=== PATIENT | female | born 1945 | race Caucasian/White ===

== ENCOUNTER 2016-06-30 14:56 | Emergency (ER) | payer MEDICARE, MEDICAID ==
--- NOTE | 2016-06-30 15:32 | ER Document Report ---
ED General - General Chief Complaint: Fall Stated Complaint: FALL/HEAD PAIN Mode of Arrival: Medic Information source: Patient Notes: 71-year-old female presents after aspirating on her food. Patient notes she tripped over a chair as she was trying to get off fell and dislodged the foreign body. Patient now only admits to headache and neck pain. Denies any numbness weakness or neurological deficits TRAVEL OUTSIDE OF THE [place] IN LAST 30 DAYS: No - HPI Onset: Just prior to arrival Onset/Duration: Sudden Quality of pain: Achy Severity: Mild Pain Level: 1 Associated symptoms: Headache Exacerbated by: Denies Relieved by: Denies Similar symptoms previously: No Recently seen / treated by doctor: No - Related Data Allergies/Adverse Reactions: ciprofloxacin [From Cipro] Allergy (Mild, Verified 06/30/16 15:44) rash ciprofloxacin HCl [From Cipro] Allergy (Mild, Verified 06/30/16 15:44) rash codeine [Codeine] Allergy (Mild, Verified 06/30/16 15:44) rash esomeprazole magnesium [From Nexium] Allergy (Mild, Verified 06/30/16 15:44) rash oxycodone HCl [From Percodan] Allergy (Mild, Verified 06/30/16 15:44) syomach upset oxycodone terephthalate [From Percodan] Allergy (Mild, Verified 06/30/16 15:44) syomach upset pentazocine lactate [From Talwin] Allergy (Mild, Verified 06/30/16 15:44) rash propoxyphene napsylate [From Darvocet-N 100] Allergy (Mild, Verified 06/30/16 15 :44) rash Sulfa (Sulfonamide Antibiotics) Allergy (Mild, Verified 06/30/16 15:44) rash Tetanus Vaccines and Toxoid [Tetanus] Allergy (Mild, Verified 06/30/16 15:44) arm swelled valsartan [From Diovan] Allergy (Verified 06/30/16 15:44) rash Penicillins Adverse Reaction (Mild, Verified 06/30/16 15:44) Hives propn apap Allergy (Mild, Uncoded 06/30/16 15:44) rash tolvan Allergy (Mild, Uncoded 06/30/16 15:44) rash Past Medical History - Social History Smoking Status: Never Smoker Cigarette use (# per day): No Chew tobacco use (# tins/day): No Smoking Education Provided: No Family History: Arthritis, CAD, Malignancy, Thyroid Disfunction - Past Medical History Cardiac Medical History: Reports: Hx Hypercholesterolemia, Hx Hypertension Pulmonary Medical History: Reports: Hx Asthma Neurological Medical History: Reports: Hx Migraine Endocrine Medical History: Reports: Hx Hypothyroidism GI Medical History: Reports: Hx Gastroesophageal Reflux Disease, Hx Hiatal Hernia, Hx Irritable Bowel Musculoskeltal Medical History: Reports Hx Arthritis Psychiatric Medical History: Reports: Hx Depression Past Surgical History: Reports: Hx Appendectomy, Hx Cholecystectomy, Hx Dilation and Curettage, Hx Hysterectomy, Hx Kidney (Renal Surgery) - removed 1981, Hx Pacemaker, Hx Tonsillectomy - Immunizations Immunizations up to date: No Hx Diphtheria, Pertussis, Tetanus Vaccination: No Hx Pneumococcal Vaccination: 01/23/12 Review of Systems - Review of Systems Notes: REVIEW OF SYSTEMS: CONSTITUTIONAL : Denies fever, chills, or sweats. Denies recent illness. EENT: Denies eye, ear, throat, or mouth pain or symptoms. Denies nasal or sinus congestion or discharge. Denies throat, tongue, or mouth swelling or difficulty swallowing. CARDIOVASCULAR: Denies chest pain. Denies palpitations or racing or irregular heart beat. Denies ankle edema. RESPIRATORY: Denies cough, cold, or chest congestion. Denies shortness of breath, difficulty breathing, or wheezing. GASTROINTESTINAL: Denies abdominal pain or distention. Denies nausea, vomiting , or diarrhea. Denies blood in vomitus, stools, or per rectum. Denies black, tarry stools. Denies constipation. GENITOURINARY: Denies difficulty urinating, painful urination, burning, frequency, blood in urine, or discharge. FEMALE GENITOURINARY: Denies vaginal bleeding, heavy or abnormal periods, irregular periods. Denies vaginal discharge or odor. MUSCULOSKELETAL: Denies back or neck pain or stiffness. Denies joint pain or swelling. SKIN: Denies rash, lesions or sores. HEMATOLOGIC : Denies easy bruising or bleeding. LYMPHATIC: Denies swollen, enlarged glands. NEUROLOGICAL: admits to headache PSYCHIATRIC: Denies anxiety or stress. Denies depression, suicidal ideation, or homicidal ideation. ALL OTHER SYSTEMS REVIEWED AND NEGATIVE. Dictation was performed using [employer] recognition software PHYSICAL EXAMINATION: GENERAL: Well-appearing, well-nourished and in no acute distress. HEAD: Atraumatic, normocephalic. EYES: Pupils equal round and reactive to light, extraocular movements intact, conjunctiva are normal. ENT: Nares patent, oropharynx clear without exudates. Moist mucous membranes. NECK: Normal range of motion, supple without lymphadenopathy LUNGS: Breath sounds clear to auscultation bilaterally and equal. No wheezes rales or rhonchi. HEART: Regular rate and rhythm without murmurs ABDOMEN: Soft, nontender, nondistended abdomen. No guarding, no rebound. No masses appreciated. Female : deferred Musculoskeletal: Normal range of motion, no pitting or edema. No cyanosis. NEUROLOGICAL: Cranial nerves grossly intact. Normal speech, normal gait. Normal sensory, motor exams PSYCH: Normal mood, normal affect. SKIN: Warm, Dry, normal turgor, no rashes or lesions noted. Physical Exam - Vital signs Vitals: Temp Pulse Resp BP Pulse Ox 97.5 F 59 L 20 146/71 H 96 06/30/16 14:56 06/30/16 14:56 06/30/16 14:56 06/30/16 14:56 06/30/16 14:56 Course - Re-evaluation Re-evalutation: 06/30/16 15:31 CT head neck pending otherwise patients in no distress looks well 06/30/16 16:04 CT head neck no no acute abnormality patient is otherwise stable for discharge given that she looks so well is in no distress friend notes no abnormalities After performing a Medical Screening Examination, I estimate there is LOW risk for INTRACRANIAL HEMORRHAGE, UNSTABLE SPINE FRACTURE, CENTRAL CORD SYNDROME, CAUDA EQUINA, THORACIC AORTIC DISSECTION, PNEUMOTHORAX, PERFORATED BOWEL, RUPTURED ABDOMINAL AORTIC ANEURYSM, ACUTE TENDON RUPTURE, COMPARTMENT SYNDROME, or OPEN FRACTURE, thus I consider the discharge disposition reasonable. Also, there is no evidence or peritonitis, sepsis, or toxicity. I have reevaluated this patient multiple times and no significant life threatening changes are noted. The patient and I have discussed the diagnosis and risks, and we agree with discharging home to follow-up with their primary doctor with the understanding that symptoms and presentations can change. We also discussed returning to the Emergency Department immediately if new or worsening symptoms occur. We have discussed the symptoms which are most concerning (e.g., bloody stool, fever, changing or worsening pain, vomiting) that necessitate immediate return. 06/30/16 16:04 - Vital Signs Vital signs: Temp Pulse Resp BP Pulse Ox 97.4 F 59 L 20 118/69 96 06/30/16 16:00 06/30/16 16:00 06/30/16 16:00 06/30/16 16:00 06/30/16 16:00 - Diagnostic Test Radiology reviewed: Image reviewed, Reports reviewed Discharge - Discharge Clinical Impression: Aspiration into airway Qualifiers: Encounter type: initial encounter Qualified Code(s): T17.908A - Unspecified foreign body in respiratory tract, part unspecified causing other injury, initial encounter Head injury Qualifiers: Encounter type: initial encounter Qualified Code(s): S09.90XA - Unspecified injury of head, initial encounter Condition: Stable Disposition: HOME, SELF-CARE Additional Instructions: Please return immediately if there any other concerns Referrals: OFE HUBER MD [Primary Care Provider] - Follow up tomorrow
[2016-06-30 16:01] VITALS: BP 118/69
== END 2016-06-30 16:02 | disposition home or self-care (01) ==
LOC: ER 14:56
DX: T17.920A Food in respiratory tract, part unspecified causing asphyxiation, initial encounter (principal); S09.90XA Unspecified injury of head, initial encounter; W01.0XXA Fall on same level from slipping, tripping and stumbling without subsequent striking against object, initial encounter; Y93.89 Activity, other specified; Y92.009 Unspecified place in unspecified non-institutional (private) residence as the place of occurrence of the external cause; R51 Headache; M54.2 Cervicalgia; I10 Essential (primary) hypertension; J45.909 Unspecified asthma, uncomplicated; Z88.1 Allergy status to other antibiotic agents; Z88.5 Allergy status to narcotic agent; Z88.8 Allergy status to other drugs, medicaments and biological substances; Z88.2 Allergy status to sulfonamides; Z88.7 Allergy status to serum and vaccine; Z90.5 Acquired absence of kidney; Z95.0 Presence of cardiac pacemaker
CPT/HCPCS: 70450; 72125; 99284

== ENCOUNTER → 2016-12-12 | Day surgery (SDC) | payer MEDICARE, MEDICAID ==
--- NOTE | 2016-12-12 11:31 | Operative Report ---
KNEE RADIOFREQUENCY left knee under CT guidance Preoperative diagnosis: Left Osteoarthritis Knee Postoperative diagnosis: Left Osteoarthritis Knee PROCEDURE: 1. Superolateral genicular branch from the vastus lateralis 2. Superomedial genicular branch from the vastus medialis 3. Inferomedial genicular branch from the saphenous nerve 4. Medial retinacular branch from the vastus intermedius DATE OF PROCEDURE: 12 December 2016 ANESTHESIA: Local anesthesia only COMPLICATIONS: No complications noted PROCEDURE IN DETAIL: Hx/PE/meds/allergies/applicable labs reviewed. No changes and no contraindications were found. Full description of the procedure was provided including benefits as well as possible complications including transient increased pain, stomach irritation, mood alteration, transient weakness or parasthesias as well as more serious nerve injury, bleeding, infection or allergic reaction. Informed consent was obtained and documented. The patient was brought to the procedure room and placed on the exam table in a comfortable supine position. The place for needle placement was obtained by manual palpation with radiographic confirmation. The sterile field was prepared by chloroprep and sterile drapes. Local anesthesia superficial and deep was provided by local infiltration of 1% lidocaine 2 cc in the 4 different sites. A 17g 50mm and a 75 mm radiofrequency introducer needle with a 4 mm active tip was placed overlying the left knee joint and using fluoroscopic guidance the needle was advanced to a bony endpoint on the superiolateral portion of the femoral condyle of the left knee. A second needle was advanced to a bony endpoint on the superiomedial portion of the femoral condyle. A third needle was then placed over the inferiomedial portion of the tibial condyle until a bony endpoint was met. Finally a fourth needle placed midline of the femur approximately 2cm superior to the upper border of the patella. Attempted aspiration yielded no blood. Apical view on CT scan views showed all the needles at 50% depth of the femur and tibia. Motor stimulation was tested at 2.0 volts with no leg movement. Images were saved in apical views. A mixture consisting of 0.25% Marcaine was slowly injected. Then a radiofrequency ablation of each of the geniculate nerves were done at 80 degrees Celsius for 2 minutes and 30 seconds each. The needles were withdrawn. The patient tolerated the procedure well. After observation the patient was discharged with instructions and follow up. They were also provided contact information to call regarding any concerning symptoms or questions. IMPRESSION: 1. Successful geniculate knee radiofrequency ablation was performed. 2. The patient was given prescription of home medicines to be resumed. 3. RTC in 1 week. Original Note: KNEE RADIOFREQUENCY left knee under CT guidance Preoperative diagnosis: Left Osteoarthritis Knee Postoperative diagnosis: Left Osteoarthritis Knee PROCEDURE: 1. Superolateral genicular branch from the vastus lateralis 2. Superomedial genicular branch from the vastus medialis 3. Inferomedial genicular branch from the saphenous nerve 4. Medial retinacular branch from the vastus intermedius DATE OF PROCEDURE: 28 November 2016 ANESTHESIA: Local anesthesia only COMPLICATIONS: No complications noted PROCEDURE IN DETAIL: Hx/PE/meds/allergies/applicable labs reviewed. No changes and no contraindications were found. Full description of the procedure was provided including benefits as well as possible complications including transient increased pain, stomach irritation, mood alteration, transient weakness or parasthesias as well as more serious nerve injury, bleeding, infection or allergic reaction. Informed consent was obtained and documented. The patient was brought to the procedure room and placed on the exam table in a comfortable supine position. The place for needle placement was obtained by manual palpation with radiographic confirmation. The sterile field was prepared by chloroprep and sterile drapes. Local anesthesia superficial and deep was provided by local infiltration of 1% lidocaine 2 cc in the 4 different sites. A 17g 50mm and a 75 mm radiofrequency introducer needle with a 4 mm active tip was placed overlying the left knee joint and using fluoroscopic guidance the needle was advanced to a bony endpoint on the superiolateral portion of the femoral condyle of the left knee. A second needle was advanced to a bony endpoint on the superiomedial portion of the femoral condyle. A third needle was then placed over the inferiomedial portion of the tibial condyle until a bony endpoint was met. Finally a fourth needle placed midline of the femur approximately 2cm superior to the upper border of the patella. Attempted aspiration yielded no blood. Apical view on CT scan views showed all the needles at 50% depth of the femur and tibia. Motor stimulation was tested at 2.0 volts with no leg movement. Images were saved in apical views. A mixture consisting of 0.25% Marcaine was slowly injected. Then a radiofrequency ablation of each of the geniculate nerves were done at 80 degrees Celsius for 2 minutes and 30 seconds each. The needles were withdrawn. The patient tolerated the procedure well. After observation the patient was discharged with instructions and follow up. They were also provided contact information to call regarding any concerning symptoms or questions.
== END ==
LOC: RAD 10:33
PROVIDERS: ATTEND Family Medicine
DX: M17.11 Unilateral primary osteoarthritis, right knee (principal)
CPT/HCPCS: 64640

== ENCOUNTER → 2017-02-06 | Day surgery (SDC) | payer MEDICARE, MEDICAID ==
--- NOTE | 2017-02-06 09:49 | Operative Report ---
PROCEDURE: KNEE RADIOFREQUENCY left under ultrasound guidance Preoperative Diagnosis: Left knee osteoarthritis Postoperative Diagnosis: Left knee osteoarthritis 1. Superolateral genicular branch from the vastus lateralis 2. Superomedial genicular branch from the vastus medialis 3. Inferomedial genicular branch from the saphenous nerve 4. Medial retinacular branch from the vastus intermedius DATE OF PROCEDURE: February 06, 2017 ANESTHESIA: Local anesthesia COMPLICATIONS: None reported PROCEDURE IN DETAIL: Hx/PE/meds/allergies/applicable labs reviewed. No changes and no contraindications were found. Full description of the procedure was provided including benefits as well as possible complications including transient increased pain, stomach irritation, mood alteration, transient weakness or parasthesias as well as more serious nerve injury, bleeding, infection or allergic reaction. Informed consent was obtained and documented. The patient was brought to the procedure room and placed on the exam table in a comfortable supine position. The place for needle placement was obtained by manual palpation with ultrasound confirmation. The sterile field was prepared by chloroprep and sterile drapes. Local anesthesia superficial and deep was provided by local infiltration of 2% lidocaine. A 17g 75 mm radiofrequency introducer needle with a 4 mm active tip was placed overlying the left knee joint and using ultrasound guidance the needle was advanced to a bony endpoint on the superiolateral portion of the femoral condyle of the left knee. A second needle was advanced to a bony endpoint on the superiomedial portion of the femoral condyle. A third needle was then placed over the inferiomedial portion of the tibial condyle until a bony endpoint was met. 4th needle placed 3mm above the patella). Attempted aspiration yielded no blood. Transverse ultrasound views showed all the needles at 50% depth of the femur and tibia. Motor stimulation was tested at 2.0 volts with no leg movement. Images were saved in AP and lateral. A mixture consisting of 0.5% bupivacaine was slowly injected. Then a radiofrequency ablation of each of the geniculate nerves were done at 80 degrees Celsius for 2 minutes and 30 seconds each. The needles were withdrawn. The patient tolerated the procedure well. After observation the patient was discharged with instructions and follow up. They were also provided contact information to call regarding any concerning symptoms or questions. IMPRESSION: 1. Successful geniculate left knee radiofrequency ablation was performed. 2. The patient was given prescription of home medicines. 3. RTC in 1-2 week(s).
== END ==
LOC: RAD 08:59
PROVIDERS: ATTEND Family Medicine
PROC: 3E0T3TZ Introduction of Destructive Agent into Peripheral Nerves and Plexi, Percutaneous Approach (ICD-10-PCS; principal; 2017-02-06)
DX: M17.12 Unilateral primary osteoarthritis, left knee (principal)
CPT/HCPCS: 64640

== ENCOUNTER 2017-06-06 22:16 | Inpatient (IN) | payer MEDICARE, MEDICAID ==
[2017-06-06] MEDS ORDERED: NORMAL SALINE 500 ML IV ONE (23:16)
--- NOTE | 2017-06-06 23:23 | ER Document Report ---
ED General - General Chief Complaint: Nausea/Vomiting/Diarrhea Stated Complaint: WEAK Time Seen by Provider: 06/06/17 22:57 Notes: Patient is a 72 year old female who presents with weakness. It is very difficult to ascertain how long this has been ongoing for, but per her son and herself it appears to be worsening over the last week. Patient had neck injections today, but was already feeling very weak before this. Patient says she was told not to eat a day before the injections and feels too nauseous to eat now. She denies any focal weakness or numbness in the arms or legs. No recent fevers. She complains now of chest pain that started since she arrived to the ER. She also complains of diarrhea that she has chronically had diarrhea but says she thinks is related to irritable bowel. In review of her meds she is on [place], but it is not a new medication. Patient was recently started on Levothyroxine because she was told that her thyroid function is off. Patient has no other complaints at this time. TRAVEL OUTSIDE OF THE [place] IN LAST 30 DAYS: No - Related Data Allergies/Adverse Reactions: ciprofloxacin [From Cipro] Allergy (Mild, Verified 06/30/16 15:44) rash ciprofloxacin HCl [From Cipro] Allergy (Mild, Verified 06/30/16 15:44) rash codeine [Codeine] Allergy (Mild, Verified 06/30/16 15:44) rash esomeprazole magnesium [From Nexium] Allergy (Mild, Verified 06/30/16 15:44) rash oxycodone HCl [From Percodan] Allergy (Mild, Verified 06/30/16 15:44) syomach upset oxycodone terephthalate [From Percodan] Allergy (Mild, Verified 06/30/16 15:44) syomach upset pentazocine lactate [From Talwin] Allergy (Mild, Verified 06/30/16 15:44) rash propoxyphene napsylate [From Darvocet-N 100] Allergy (Mild, Verified 06/30/16 15 :44) rash Sulfa (Sulfonamide Antibiotics) Allergy (Mild, Verified 06/30/16 15:44) rash Tetanus Vaccines and Toxoid [Tetanus] Allergy (Mild, Verified 06/30/16 15:44) arm swelled valsartan [From Diovan] Allergy (Verified 06/30/16 15:44) rash Penicillins Adverse Reaction (Mild, Verified 06/30/16 15:44) Hives propn apap Allergy (Mild, Uncoded 06/30/16 15:44) rash tolvan Allergy (Mild, Uncoded 06/30/16 15:44) rash Past Medical History - Social History Smoking Status: Unknown if Ever Smoked Chew tobacco use (# tins/day): No Frequency of alcohol use: None Drug Abuse: None Family History: Arthritis, CAD, Malignancy, Thyroid Disfunction Patient has suicidal ideation: No Patient has homicidal ideation: No - Past Medical History Cardiac Medical History: Reports: Hx Hypercholesterolemia, Hx Hypertension Pulmonary Medical History: Reports: Hx Asthma Neurological Medical History: Reports: Hx Migraine Endocrine Medical History: Reports: Hx Hypothyroidism Renal/ Medical History: Denies: Hx Peritoneal Dialysis GI Medical History: Reports: Hx Gastroesophageal Reflux Disease, Hx Hiatal Hernia, Hx Irritable Bowel Musculoskeltal Medical History: Reports Hx Arthritis Psychiatric Medical History: Reports: Hx Depression Past Surgical History: Reports: Hx Appendectomy, Hx Cholecystectomy, Hx Dilation and Curettage, Hx Hysterectomy, Hx Kidney (Renal Surgery) - removed 1981, Hx Pacemaker, Hx Tonsillectomy - Immunizations Immunizations up to date: No Hx Diphtheria, Pertussis, Tetanus Vaccination: No Hx Pneumococcal Vaccination: 01/23/12 Review of Systems - Review of Systems Notes: My Normal Review Basic REVIEW OF SYSTEMS: CONSTITUTIONAL : Denies fever, chills, or sweats. Feels very weak. EENT: Denies eye, ear, throat, or mouth pain or symptoms. Denies nasal or sinus congestion. CARDIOVASCULAR: Mild chest pain RESPIRATORY: Denies cough, cold, or chest congestion. Denies shortness of breath, difficulty breathing, or wheezing. GASTROINTESTINAL: Denies abdominal pain. Diarrhea. GENITOURINARY: Denies difficulty urinating, painful urination, burning, frequency, or blood in urine. FEMALE GENITOURINARY: Denies vaginal bleeding, abnormal or irregular periods. MUSCULOSKELETAL: Chronic neck and back pain SKIN: Denies rash or skin lesions. NEUROLOGICAL: Denies altered mental status or loss of consciousness. Has a mild headache. Denies weakness or paralysis or loss of use of either side. Denies problems with gait or speech. Denies sensory or motor loss. ALL OTHER SYSTEMS REVIEWED AND NEGATIVE. Physical Exam - Vital signs Vitals: Resp Pulse Ox 22 H 96 06/06/17 22:37 06/06/17 22:37 - Notes Notes: General Appearance: Well nourished, alert, cooperative, no acute distress, patient is very weak appearing. Her eyelids are very droopy. She can barely lift her arms and legs off the bed. Vitals: reviewed, See vital signs table. Head: no swelling or tenderness to the head Eyes: PERRL, EOMI, Conjuctiva clear Mouth: No decreasd moisture Throat: No tonsillar inflammation, No airway obstruction Neck: Supple, no neck tenderness Lungs: No wheezing, No rales, No rhonci, No accessory muscle use, good air exchange bilaterally. Heart: Normal rate, Regular rythm, No murmur, no rub Abdomen: Normal BS, soft, No rigidity, No abdominal tenderness, No guarding, no rebound Extremities: strength 5/5 in all extremities, good pulses in all extremities, no swelling or tenderness in the extremities, no edema. Skin: warm, dry, appropriate color, no rash Neuro: speech clear, oriented x 3, normal affect, responds appropriately to questions. Patient is able to lift both arms off the bed but is very weak in doing so. Billing Manager strength is equal bilaterally but weak. Patient is able to have plantar dorsiflexion against resistance but is equally weak on both sides. Cranial nerves II through XII are intact. Course - Re-evaluation Re-evalutation: 06/07/17 00:56 Patient's EKG shows a wide complex arrhythmia that is atrially paced. I do not see this on her previous EKGs. I did go into the room and asked the patient if she has had a pacemaker change. She says she did have her pacemaker changed in last 2 years. Her last EKG I have for comparison is from 2014. She thinks the pacemaker change was since then. This may be why her QRS complex is completely different from her previous EKGs. Currently she is chest pain-free. We will continue monitor patient wait for the rest of her labs come back. 06/07/17 01:02 06/07/17 04:45 The exact cause of the patient's weakness is unclear. She is unable to get out of bed on her own. She is very weak and somnolent appearing. Not sure if this is related to polypharmacy. I am unsure of this related to fluctuating thyroid levels. Is very difficult to tell exactly is causing at this time. It is hard to obtain from her history exactly how long this is been ongoing as I cannot get a clear answer to that. Due to her ongoing weakness to the extent where she can barely talk or get out of bed feels appropriate to consult hospice for admission. I did speak with Dr. Lauren who agrees to admit the patient. Dictation of this chart was performed using voice recognition software; therefore, there may be some unintended grammatical errors. - Vital Signs Vital signs: Temp Pulse Resp BP Pulse Ox 98.2 F 22 H 118/68 97 06/06/17 22:42 06/07/17 03:01 06/07/17 03:01 06/07/17 03:01 - Laboratory Result Diagrams: 06/06/17 23:56 06/06/17 23:56 Laboratory results interpreted by me: 06/06/17 06/06/17 06/06/17 23:56 23:56 23:56 RDW 14.6 H Potassium 2.6 L* Chloride 97 L Carbon Dioxide 39 H Anion Gap 4 L BUN 21 H Est GFR (Non-Af Amer) 57 L Phosphorus AST 39 H ALT 59 H Total Protein 5.2 L Albumin 3.3 L TSH 0.08 L Free T4 2.20 H Free T3 pg/mL 2.66 L Urine Protein Urine Urobilinogen Ur Leukocyte Esterase 06/06/17 06/07/17 23:56 02:09 RDW Potassium Chloride Carbon Dioxide Anion Gap BUN Est GFR (Non-Af Amer) Phosphorus 1.6 L AST ALT Total Protein Albumin TSH Free T4 Free T3 pg/mL Urine Protein 30 H Urine Urobilinogen 4.0 H Ur Leukocyte Esterase TRACE H - EKG Interpretation by Me Additional EKG results interpreted by me: 06/07/17 00:55 EKG is reviewed and interpreted by me. EKG shows a paced rhythm with a rate of 63 bpm. Is difficult to determine if this is atrially paced. Her previous EKG shows that she is atrial paced but she has a lot of baseline artifact on this EKG making it difficult to determine exactly where the pacer spike occurs. QRS duration is prolonged and patient does have wide QRS complex. It is somewhat consistent with an atypical appearing left bundle branch block. I do not see this on her previous EKGs. QTc interval slightly prolonged. Old EKG for comparison is from February 10, 2015. Discharge - Discharge Clinical Impression: Hypokalemia, Weakness Condition: Stable Disposition: ADMITTED OBSERVATION Admitting Provider: Hospitalist Unit Admitted: Telemetry Referrals: FARHAN SILVER MD [Primary Care Provider] - Follow up as needed
--- NOTE | 2017-06-07 00:07 | RADIOLOGY REPORT (SQ) ---
EXAM DESCRIPTION: CT HEAD WITHOUT CLINICAL HISTORY: 72 years Female, weakness COMPARISON: 06/30/2016, images. TECHNIQUE: No contrast. Coronal and sagittal reformat. This exam was performed according to our departmental dose-optimization program, which includes automated exposure control, adjustment of the mA and/or kV according to patient size and/or use of iterative reconstruction technique. FINDINGS: No hemorrhage or infarct. 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 No mass effect. No midline shift. Moderate ethmoid mucosal thickening. Brain and extra-axial structures appear otherwise intact. IMPRESSION: No acute findings.
--- NOTE | 2017-06-07 00:08 | RADIOLOGY REPORT (SQ) ---
EXAM DESCRIPTION: CHEST SINGLE VIEW CLINICAL HISTORY: 72 years Female, weakness COMPARISON: None. NUMBER OF VIEWS/TECHNIQUE: 1/AP LIMITATIONS: None. FINDINGS: Normal lung volume, clear parenchyma, normal cardiac silhouette, and intact bony thorax. Left cardiac stimulation device and leads. IMPRESSION: No acute cardiopulmonary findings.
[2017-06-07 00:22] LABS: ALANINE AMINOTRANSFERASE 59 U/L (9-52); ALBUMIN 3.3 g/dL (3.5-5.0); ALKALINE PHOSPHATASE 60 U/L (38-126); ASPARTATE AMINO TRANSFERASE 39 U/L (14-36); BILIRUBIN,DIRECT 0.2 mg/dL (0.0-0.4); BILIRUBIN,TOTAL 0.6 mg/dL (0.2-1.3); BLOOD UREA NITROGEN 21 mg/dL (7-20); CALCIUM 9.9 mg/dL (8.4-10.2); GLUCOSE 94 mg/dL (75-110); TOTAL PROTEIN 5.2 g/dL (6.3-8.2)
[2017-06-07 00:24] LABS: ABSOLUTE LYMPHOCYTES (AUTO) 1.6 10^3/uL (0.5-4.7); ABSOLUTE MONOCYTES (AUTO) 0.7 10^3/uL (0.1-1.4); ABSOLUTE NEUT (AUTO) 5.7 10^3/uL (1.7-8.2); BASOPHILS % (AUTO) 0.6 % (0-2); EOSINOPHILS % (AUTO) 0.4 % (0-6); HEMATOCRIT 41.6 % (36.0-47.0); HEMOGLOBIN 14.1 g/dL (12.0-15.5); LYMPHOCYTES % (AUTO) 19.8 % (13-45); MEAN CORPUSCULAR HEMOGLOBIN 31.3 pg (27.0-33.4); MEAN CORPUSCULAR VOLUME 92 fl (80-97); MONOCYTES % (AUTO) 8.9 % (3-13); PLATELET COUNT 251 10^3/uL (150-450); RED BLOOD COUNT 4.52 10^6/uL (3.72-5.28); RED CELL DISTRIBUTION WIDTH 14.6 % (11.5-14.0); SEGMENTED NEUTROPHILS % (AUTO) 70.3 % (42-78); TOTAL CELLS COUNTED % (AUTO) 100 %; WHITE BLOOD COUNT 8.1 10^3/uL (4.0-10.5)
[2017-06-07 00:28] LABS: CHLORIDE 97 mmol/L (98-107); SODIUM 139.5 mmol/L (137-145)
[2017-06-07 00:35] LABS: ANION GAP 4 (5-19); CARBON DIOXIDE 39 mmol/L (22-30)
[2017-06-07 00:40] LABS: FREE T3 2.66 pg/mL (2.77-5.27); FREE T4 (FREE THYROXINE) 2.2 ng/dL (0.78-2.19)
[2017-06-07 00:45] LABS: POTASSIUM 2.6 mmol/L (3.6-5.0)
[2017-06-07 00:53] LABS: THYROID STIMULATING HORMONE 0.08 uIU/mL (0.47-4.68)
[2017-06-07] MEDS ORDERED: POTASSIUM CHLORIDE 10 MEQ TABLET.SA PO ONE (00:53)
[2017-06-07 02:30] LABS: APPEARANCE,URINE SLIGHTLY-CLOUDY; BILIRUBIN,URINE NEGATIVE (NEGATIVE); COLOR,URINE YELLOW; GLUCOSE, URINE NEGATIVE (NEGATIVE); KETONES,URINE NEGATIVE (NEGATIVE); LEUKOCYTE ESTERASE,URINE TRACE (NEGATIVE); NITRITE,URINE NEGATIVE (NEGATIVE); PROTEIN,URINE 30 mg/dL (NEGATIVE); URINE SPECIFIC GRAVITY 1.014
[2017-06-07 02:32] LABS: URINE AMPHETAMINES SCREEN NEGATIVE; URINE BARBITURATES SCREEN NEGATIVE; URINE BENZODIAZEPINES SCREEN UNCONFIRMED POSITIVE; URINE COCAINE SCREEN NEGATIVE; URINE MARIJUANA (THC) SCREEN NEGATIVE; URINE METHADONE SCREEN NEGATIVE; URINE PHENCYCLIDINE SCREEN NEGATIVE
[2017-06-07] MEDS ORDERED: NALOXONE HCL INJ/PF 0.4 MG/1 ML SDV IV ONE (03:22)
[2017-06-07] MEDS ORDERED: NALOXONE HCL INJ/PF 0.4 MG/1 ML SDV ONE (04:25)
[2017-06-07] MEDS ORDERED: IPRATROPIUM/ALBUTEROL 0.5-2.5 MG/3 ML AMPUL NEB PRN (04:43)
[2017-06-07] MEDS ORDERED: ONDANSETRON HCL INJ/PF 4 MG/2 ML SDV IV PRN (04:43)
[2017-06-07] MEDS ORDERED: MAG HYDROX/AL HYDROX/SIMETH SUSP 30 ML UDCUP PO PRN (04:43)
[2017-06-07] MEDS ORDERED: NORMAL SALINE 1000 ML 1,000 ML IV PRN (04:45)
--- NOTE | 2017-06-07 05:00 | PDOC H&P ---
History of Present Illness Admission Date/PCP: FARHAN SILVER Patient complains of: Nausea, vomiting and falls History of Present Illness: NATALI BATISTA is a 72 year old female with a past medical history of chronic back pain, permanent pacemaker, COPD, obstructive sleep apnea, depression and hypothyroidism. Patient presents with 48 hours of nausea vomiting and diarrhea without blood or fever. In the emergency room she is found to have an odd affect but alert and oriented 3. Patient's son is at bedside providing history of new medications including Synthroid and an antidepressant started 72 hours ago. In the emergency room the patient is found to have prerenal azotemia, hypokalemia, and a bicarbonate of 39. Patient admits noncompliance with CPAP, chronic fatigue and generalized weakness. Past Medical History Cardiac Medical History: Reports: Hyperlipidema, Hypertension Pulmonary Medical History: Reports: Asthma Neurological Medical History: Reports: Migraine Endocrine Medical History: Reports: Hypothyroidism GI Medical History: Reports: Gastroesophageal Reflux Disease, Hiatal Hernia Musculoskeltal Medical History: Reports: Arthritis Psychiatric Medical History: Reports: Depression Hematology: Denies: Anemia Past Surgical History Past Surgical History: Reports: Appendectomy, Cholecystectomy, Hysterectomy, Pacemaker, Tonsillectomy Social History Information Source: Patient, Relative Smoking Status: Unknown if Ever Smoked Frequency of Alcohol Use: None Hx Recreational Drug Use: No Hx Prescription Drug Abuse: No - Advance Directive Resuscitation Status: Full Code Family History Family History: Arthritis, CAD, Malignancy, Thyroid Disfunction Parental Family History Reviewed: Yes Children Family History Reviewed: Yes Sibling(s) Family History Reviewed.: Yes Medication/Allergy Home Medications: Albuterol Sulfate [Ventolin HFA MDI 8 gm (ER Disp)] 2 puff IH Q4H PRN 09/26/11 Aspirin [Ecotrin 81 mg EC Tablet] 81 mg PO DAILY 09/26/11 Carboxymethylcellulos/Glycerin [Optive Eye Drops] 2 drop OU DAILY 09/26/11 Ezetimibe [Zetia 10 mg Tablet] 10 mg PO DAILY 09/26/11 Hydroxyzine HCl [Atarax 25 mg Tablet] 1 tab PO Q4 PRN 09/26/11 Loratadine [Allergy Relief] 10 mg PO DAILY 09/26/11 [place]-3 Fatty Acids/Fish Oil [Fish Oil 1,200 mg Softgel] 1 each PO DAILY Pantoprazole Sodium 40 mg PO DAILY 09/26/11 Ranitidine HCl [Zantac 150 mg Tablet] 150 mg PO DAILY 09/26/11 Hydrocodone/Acetaminophen [[place] 5-325 mg Tablet] 1 tab PO Q8H PRN 02/10/15 Meloxicam 7.5 mg PO QHS 02/10/15 Metoprolol Succinate [Toprol Xl 25 mg Tab.sr] 25 mg PO DAILY #30 tab.sr.24h Allergies/Adverse Reactions: ciprofloxacin [From Cipro] Allergy (Mild, Verified 06/30/16 15:44) rash ciprofloxacin HCl [From Cipro] Allergy (Mild, Verified 06/30/16 15:44) rash codeine [Codeine] Allergy (Mild, Verified 06/30/16 15:44) rash esomeprazole magnesium [From Nexium] Allergy (Mild, Verified 06/30/16 15:44) rash oxycodone HCl [From Percodan] Allergy (Mild, Verified 06/30/16 15:44) syomach upset oxycodone terephthalate [From Percodan] Allergy (Mild, Verified 06/30/16 15:44) syomach upset pentazocine lactate [From Talwin] Allergy (Mild, Verified 06/30/16 15:44) rash propoxyphene napsylate [From Darvocet-N 100] Allergy (Mild, Verified 06/30/16 15 :44) rash Sulfa (Sulfonamide Antibiotics) Allergy (Mild, Verified 06/30/16 15:44) rash Tetanus Vaccines and Toxoid [Tetanus] Allergy (Mild, Verified 06/30/16 15:44) arm swelled valsartan [From Diovan] Allergy (Verified 06/30/16 15:44) rash Penicillins Adverse Reaction (Mild, Verified 06/30/16 15:44) Hives propn apap Allergy (Mild, Uncoded 06/30/16 15:44) rash tolvan Allergy (Mild, Uncoded 06/30/16 15:44) rash Review of Systems Constitutional: ABSENT: chills, fever(s), headache(s), weight gain, weight loss Eyes: ABSENT: visual disturbances Ears: ABSENT: hearing changes Cardiovascular: ABSENT: chest pain, dyspnea on exertion, edema, orthropnea, palpitations Respiratory: ABSENT: cough, hemoptysis Gastrointestinal: ABSENT: abdominal pain, constipation, diarrhea, hematemesis, hematochezia, nausea, vomiting Genitourinary: ABSENT: dysuria, hematuria Musculoskeletal: ABSENT: joint swelling Integumentary: ABSENT: rash, wounds Neurological: ABSENT: abnormal gait, abnormal speech, confusion, dizziness, focal weakness, syncope Psychiatric: ABSENT: anxiety, depression, homidical ideation, suicidal ideation Endocrine: ABSENT: cold intolerance, heat intolerance, polydipsia, polyuria Hematologic/Lymphatic: ABSENT: easy bleeding, easy bruising Physical Exam Vital Signs: Temp Pulse Resp BP Pulse Ox 98.2 F 22 H 118/68 97 06/06/17 22:42 06/07/17 03:01 06/07/17 03:01 06/07/17 03:01 General appearance: PRESENT: cooperative, mild distress, morbidly obese Head exam: PRESENT: atraumatic, normocephalic Eye exam: PRESENT: conjunctiva pink, EOMI, PERRLA, other. ABSENT: scleral icterus Ear exam: PRESENT: normal external ear exam Mouth exam: PRESENT: dry mucosa, tongue midline Neck exam: ABSENT: carotid bruit, JVD, lymphadenopathy, thyromegaly Respiratory exam: PRESENT: clear to auscultation link. ABSENT: rales, rhonchi, wheezes Cardiovascular exam: PRESENT: RRR. ABSENT: diastolic murmur, rubs, systolic murmur Pulses: PRESENT: normal dorsalis pedis pul Vascular exam: PRESENT: normal capillary refill GI/Abdominal exam: PRESENT: normal bowel sounds, soft. ABSENT: distended, guarding, mass, organolmegaly, rebound, tenderness Rectal exam: PRESENT: deferred Extremities exam: PRESENT: full ROM. ABSENT: calf tenderness, clubbing, pedal edema Musculoskeletal exam: ABSENT: ambulatory Neurological exam: PRESENT: alert, awake, oriented to person, oriented to place , oriented to time, oriented to situation, CN II-XII grossly intact. ABSENT: motor sensory deficit Psychiatric exam: PRESENT: flat affect Skin exam: PRESENT: dry, intact, warm. ABSENT: cyanosis, rash Results Laboratory Results: 06/06/17 23:56 06/06/17 23:56 06/06/17 06/06/17 06/06/17 23:56 23:56 23:56 WBC 8.1 RBC 4.52 Hgb 14.1 Hct 41.6 MCV 92 MCH 31.3 MCHC 34.0 RDW 14.6 H Plt Count 251 Seg Neutrophils % 70.3 Lymphocytes % 19.8 Monocytes % 8.9 Eosinophils % 0.4 Basophils % 0.6 Absolute Neutrophils 5.7 Absolute Lymphocytes 1.6 Absolute Monocytes 0.7 Absolute Eosinophils 0.0 Absolute Basophils 0.0 Sodium 139.5 Potassium 2.6 L* Chloride 97 L Carbon Dioxide 39 H Anion Gap 4 L BUN 21 H Creatinine 0.97 Est GFR ( Amer) > 60 Est GFR (Non-Af Amer) 57 L Glucose 94 Calcium 9.9 Phosphorus Magnesium Total Bilirubin 0.6 AST 39 H ALT 59 H Alkaline Phosphatase 60 Total Protein 5.2 L Albumin 3.3 L TSH 0.08 L Free T4 2.20 H Free T3 pg/mL 2.66 L Urine Color Urine Appearance Urine pH Ur Specific [place] Urine Protein Urine Glucose (UA) Urine Ketones Urine Blood Urine Nitrite Ur Leukocyte Esterase Urine WBC (Auto) Urine RBC (Auto) 06/06/17 06/06/17 06/07/17 23:56 23:56 02:09 WBC RBC Hgb Hct MCV MCH MCHC RDW Plt Count Seg Neutrophils % Lymphocytes % Monocytes % Eosinophils % Basophils % Absolute Neutrophils Absolute Lymphocytes Absolute Monocytes Absolute Eosinophils Absolute Basophils Sodium Potassium Chloride Carbon Dioxide Anion Gap BUN Creatinine Est GFR ( Amer) Est GFR (Non-Af Amer) Glucose Calcium Phosphorus 1.6 L Magnesium 2.2 Total Bilirubin AST ALT Alkaline Phosphatase Total Protein Albumin TSH Free T4 Free T3 pg/mL Urine Color YELLOW Urine Appearance SLIGHTLY-CLOUDY Urine pH 7.0 Ur Specific [place] 1.014 Urine Protein 30 H Urine Glucose (UA) NEGATIVE Urine Ketones NEGATIVE Urine Blood NEGATIVE Urine Nitrite NEGATIVE Ur Leukocyte Esterase TRACE H Urine WBC (Auto) 3 Urine RBC (Auto) 0 06/06/17 23:56 Troponin I 0.059 Impressions: Chest X-Ray 06/06/17 23:16 IMPRESSION: No acute cardiopulmonary findings. Head CT 06/06/17 23:16 IMPRESSION: No acute findings. Assessment & Plan - Diagnosis (1) Hyperthyroidism Is this a current diagnosis for this admission?: Yes Plan: Likely iatrogenic follow-up free T4 , hold Synthroid. (2) Hypokalemia Is this a current diagnosis for this admission?: Yes Plan: Likely secondary to hydrochlorothiazide, replete potassium and discontinue hydrochlorothiazide (3) Weakness Is this a current diagnosis for this admission?: Yes Plan: Multifactorial secondary to hypokalemia, debility, morbid obesity, high risk for falls obtain physical therapy eval (4) JENNI (obstructive sleep apnea) Is this a current diagnosis for this admission?: Yes Plan: Patient's labs suggest hypercarbia, will obtain ABG, patient adamantly refuses BiPAP or CPAP but requests full code. Minimize analgesia, sedation and anxiolytics given risk of lower respiratory drive. (5) Depression Is this a current diagnosis for this admission?: Yes Plan: Discontinue current agent secondary to recent symptom changes. Consider Remeron trial versus trazodone - Time Time Spent: 50 to 70 Minutes
[2017-06-07] MEDS ORDERED: POTASSIUM CHLORIDE 20 MEQ/15 ML UDCUP PO ONE ×2 (05:03→13:00)
[2017-06-07 06:40] LABS: ARTERIAL BLOOD BASE EXCESS 8.5 mmol/L; ARTERIAL BLOOD H2CO3 1.25 mmol/L (1.05-1.35); ARTERIAL BLOOD HCO3 32.4 mmol/L (20-26); ARTERIAL BLOOD O2 SATURATION 94.9 % (94-98); ARTERIAL BLOOD PCO2 41.6 mmHg (35-45); ARTERIAL BLOOD PH 7.51 (7.35-7.45); ARTERIAL BLOOD PO2 67.3 mmHg (80-100); ARTERIAL BLOOD TOTAL CO2 33.7 mmol/L (21-25)
[2017-06-07 06:41] LABS: ARTERIAL BLOOD FIO2 21%
[2017-06-07] MEDS: IPRATROPIUM/ALBUTEROL 0.5-2.5 MG/3 ML AMPUL NEB SCH ×3 (08:28→23:20)
--- NOTE | 2017-06-07 09:45 | EKG REPORT ---
SEVERITY:- DEFECTIVE ECG - PROBABLE SINUS RHYTHM IVCD, CONSIDER ATYPICAL LBBB : Confirmed by: Portillo Jackman MD 07-Jun-2017 09:44:30
[2017-06-07] MEDS: HEPARIN SOD (PORCINE) 5,000 UNIT/ML 1 ML SYRINGE SUBCUT SCH ×3 (10:19→21:33)
[2017-06-07] MEDS: ASPIRIN 81 MG TABLET, ENT COATED PO SCH (10:25)
[2017-06-07] MEDS: LORATADINE 10 MG TABLET PO SCH (10:30)
[2017-06-07] MEDS: DOCUSATE SODIUM 100 MG CAPSULE PO SCH ×2 (10:30→18:21)
[2017-06-07] MEDS: METOPROLOL SUCCINATE 25 MG TAB.SR.24H PO SCH (10:30)
--- NOTE | 2017-06-07 10:32 | PDOC PROGRESS REPORT ---
Subjective Progress Note for:: 06/07/17 Subjective:: Patient is still complaining of severe weakness she has no further vomiting; but is complaining of anorexia and severe migraine headache She has no abdominal pain ,fever or chills Reason For Visit: HYPERCAPNIA,METABOLIC ALKALOSIS,HYPOKALEMIA,FALLS Physical Exam Vital Signs: Temp Pulse Resp BP Pulse Ox 98.8 F 65 12 153/69 H 99 06/07/17 08:42 06/07/17 08:42 06/07/17 08:42 06/07/17 08:42 06/07/17 08:42 Intake & Output 06/06/17 06/07/17 06/08/17 00:59 00:59 00:59 Weight 74.5 kg General appearance: PRESENT: mild distress - Looks acute and chronically ill somewhat lethargic, obese Head exam: PRESENT: atraumatic, normocephalic Eye exam: PRESENT: conjunctiva pink, EOMI, PERRLA. ABSENT: scleral icterus Mouth exam: PRESENT: dry mucosa Neck exam: ABSENT: carotid bruit, JVD, lymphadenopathy, thyromegaly Respiratory exam: PRESENT: clear to auscultation link. ABSENT: rales, rhonchi, wheezes Pulses: PRESENT: normal dorsalis pedis pul GI/Abdominal exam: PRESENT: normal bowel sounds, soft. ABSENT: distended, guarding, mass, organolmegaly, rebound, tenderness Neurological exam: PRESENT: awake, CN II-XII grossly intact Skin exam: PRESENT: dry, intact, warm. ABSENT: cyanosis, rash Results Laboratory Results: 06/07/17 06:17 Carbonic Acid 1.25 HCO3/H2CO3 Ratio 25:1 ABG pH 7.51 H ABG pCO2 41.6 ABG pO2 67.3 L ABG HCO3 32.4 H ABG O2 Saturation 94.9 ABG Base Excess 8.5 FiO2 21% Impressions: Chest X-Ray 06/06/17 23:16 IMPRESSION: No acute cardiopulmonary findings. Head CT 06/06/17 23:16 IMPRESSION: No acute findings. Assessment & Plan - Diagnosis (1) Electrolyte imbalance Is this a current diagnosis for this admission?: Yes Plan: Continue IV fluids Replace K phosphorus magnesium as needed Repeat lab pending (2) Chronic back pain Is this a current diagnosis for this admission?: Yes (3) Vomiting and diarrhea Is this a current diagnosis for this admission?: Yes (4) Depression Is this a current diagnosis for this admission?: Yes (5) Weakness Is this a current diagnosis for this admission?: Yes Plan: PT evaluation pending At home patient uses a walker Noted that patient lives alone Consult case management for discharge planning (6) Obstructive sleep apnea Is this a current diagnosis for this admission?: Yes Plan: CPAP as needed - Time Time Spent with patient: Continue present management Time Spent with patient: 25-34 minutes
[2017-06-07 11:22] LABS: ANION GAP 6 (5-19); BLOOD UREA NITROGEN 20 mg/dL (7-20); CALCIUM 9.5 mg/dL (8.4-10.2); CARBON DIOXIDE 33 mmol/L (22-30); CHLORIDE 99 mmol/L (98-107); GLUCOSE 99 mg/dL (75-110); SODIUM 138.2 mmol/L (137-145)
[2017-06-07 11:24] LABS: POTASSIUM 2.5 mmol/L (3.6-5.0)
[2017-06-07] MEDS ORDERED: HYDROCODONE/ACETAMINOPHEN 10-325 MG TABLET PO SCH ×2 (12:00→18:00)
[2017-06-07] MEDS: POTASSI CL 20 MEQ/D5NS 1L 20 MEQ/1,000 ML RTUINJ IV PRN ×2 (14:47→21:35)
[2017-06-07] MEDS: POTASSI CL 20 MEQ/50 ML RIDER 20 MEQ/50 ML RTUPB IV SCH ×2 (14:47→16:56)
[2017-06-07] MEDS: HYDROCODONE/ACETAMINOPHEN 10-325 MG TABLET PO SCH ×2 (14:48→18:21)
[2017-06-07] MEDS ORDERED: POTASSI CL 20 MEQ/50 ML RIDER 20 MEQ/50 ML RTUPB IV ONE (16:55)
[2017-06-07] MEDS: ACETAMINOPHEN 325 MG TABLET PO PRN (21:35)
[2017-06-08] MEDS: ACETAMINOPHEN 325 MG TABLET PO PRN ×2 (01:34→15:19)
[2017-06-08] MEDS: HYDROCODONE/ACETAMINOPHEN 10-325 MG TABLET PO SCH ×2 (05:09→12:19)
[2017-06-08] MEDS: LANSOPRAZOLE 30 MG TAB.RAP.DR PO SCH (05:09)
[2017-06-08] MEDS: HEPARIN SOD (PORCINE) 5,000 UNIT/ML 1 ML SYRINGE SUBCUT SCH ×3 (05:13→21:30)
[2017-06-08 05:58] LABS: ABSOLUTE BASOPHILS # (AUTO) 0.1 10^3/uL (0.0-0.2); ABSOLUTE EOSINOPHILS # (AUTO) 0.1 10^3/uL (0.0-0.6); ABSOLUTE LYMPHOCYTES (AUTO) 1.6 10^3/uL (0.5-4.7); ABSOLUTE MONOCYTES (AUTO) 0.7 10^3/uL (0.1-1.4); ABSOLUTE NEUT (AUTO) 4.2 10^3/uL (1.7-8.2); BASOPHILS % (AUTO) 1.2 % (0-2); EOSINOPHILS % (AUTO) 1.8 % (0-6); HEMATOCRIT 36.9 % (36.0-47.0); HEMOGLOBIN 12.5 g/dL (12.0-15.5); LYMPHOCYTES % (AUTO) 24.2 % (13-45); MEAN CORPUSCULAR HGB CONC 33.8 g/dL (32.0-36.0); MEAN CORPUSCULAR VOLUME 92 fl (80-97); MONOCYTES % (AUTO) 9.7 % (3-13); PLATELET COUNT 204 10^3/uL (150-450); RED BLOOD COUNT 4.03 10^6/uL (3.72-5.28); RED CELL DISTRIBUTION WIDTH 14.7 % (11.5-14.0); SEGMENTED NEUTROPHILS % (AUTO) 63.1 % (42-78); TOTAL CELLS COUNTED % (AUTO) 100 %; WHITE BLOOD COUNT 6.7 10^3/uL (4.0-10.5)
[2017-06-08] MEDS ORDERED: LEVOTHYROXINE SODIUM 0.112 MG TABLET PO SCH ×2 (06:00→12:34)
[2017-06-08 06:38] LABS: ANION GAP 6 (5-19); BLOOD UREA NITROGEN 16 mg/dL (7-20); CALCIUM 8.6 mg/dL (8.4-10.2); CARBON DIOXIDE 27 mmol/L (22-30); CHLORIDE 101 mmol/L (98-107); GLUCOSE 110 mg/dL (75-110); SODIUM 133.8 mmol/L (137-145)
[2017-06-08 06:56] LABS: FREE T4 (FREE THYROXINE) 1.8 ng/dL (0.78-2.19)
[2017-06-08 07:03] LABS: POTASSIUM 3.7 mmol/L (3.6-5.0)
[2017-06-08 07:10] LABS: THYROID STIMULATING HORMONE 0.34 uIU/mL (0.47-4.68)
[2017-06-08] MEDS: IPRATROPIUM/ALBUTEROL 0.5-2.5 MG/3 ML AMPUL NEB SCH ×3 (08:13→23:46)
[2017-06-08] MEDS: POTASSI CL 20 MEQ/D5NS 1L 20 MEQ/1,000 ML RTUINJ IV PRN (08:32)
[2017-06-08] MEDS ORDERED: (PENDING PHARMACY ID) (Rabeprazole Sodium [Aciphex] 20 MG) PO SCH (10:00)
[2017-06-08] MEDS: LORATADINE 10 MG TABLET PO SCH (10:24)
[2017-06-08] MEDS: SERTRALINE HCL 50 MG TABLET PO SCH (10:24)
[2017-06-08] MEDS: METOPROLOL SUCCINATE 25 MG TAB.SR.24H PO SCH (10:24)
[2017-06-08] MEDS: DOCUSATE SODIUM 100 MG CAPSULE PO SCH ×2 (10:24→18:17)
[2017-06-08] MEDS: ASPIRIN 81 MG TABLET, ENT COATED PO SCH (10:24)
[2017-06-08] MEDS ORDERED: OXYCODONE-ACETAMINOPHEN 5-325 MG TABLET PO PRN (12:20)
--- NOTE | 2017-06-08 12:49 | PDOC PROGRESS REPORT ---
Subjective Progress Note for:: 06/08/17 Subjective:: Patient is very lethargic and extremely unsteady when she walks She still complaining of pain in neck and low back She has no shortness of breath no abdominal pain nausea vomiting She was evaluated by physical therapy and is a candidate for short-term rehab her electrolytes have normalized Reason For Visit: HYPOKALEMIA,DEHYDRATION,WEAKNESS Physical Exam Vital Signs: Temp Pulse Resp BP Pulse Ox 98.4 F 69 18 113/61 100 06/08/17 11:46 06/08/17 11:46 06/08/17 11:46 06/08/17 11:46 06/08/17 11:46 Intake & Output 06/07/17 06/08/17 06/09/17 00:59 00:59 00:59 Intake Total 1656 547 Balance 1656 547 Weight 89.3 kg General appearance: PRESENT: mild distress - Looks acute and chronically ill somewhat lethargic, obese Head exam: PRESENT: atraumatic, normocephalic Eye exam: PRESENT: conjunctiva pink, EOMI, PERRLA. ABSENT: scleral icterus Mouth exam: PRESENT: dry mucosa Neck exam: ABSENT: carotid bruit, JVD, lymphadenopathy, thyromegaly Respiratory exam: PRESENT: clear to auscultation link. ABSENT: rales, rhonchi, wheezes Pulses: PRESENT: normal dorsalis pedis pul GI/Abdominal exam: PRESENT: normal bowel sounds, soft. ABSENT: distended, guarding, mass, organolmegaly, rebound, tenderness Neurological exam: PRESENT: awake, CN II-XII grossly intact Skin exam: PRESENT: dry, intact, warm. ABSENT: cyanosis, rash Results Laboratory Results: 06/08/17 05:23 06/08/17 05:23 06/08/17 06/08/17 06/08/17 05:23 05:23 05:23 WBC 6.7 RBC 4.03 Hgb 12.5 Hct 36.9 MCV 92 MCH 31.0 MCHC 33.8 RDW 14.7 H Plt Count 204 Seg Neutrophils % 63.1 Lymphocytes % 24.2 Monocytes % 9.7 Eosinophils % 1.8 Basophils % 1.2 Absolute Neutrophils 4.2 Absolute Lymphocytes 1.6 Absolute Monocytes 0.7 Absolute Eosinophils 0.1 Absolute Basophils 0.1 Sodium 133.8 L Potassium 3.7 D Chloride 101 Carbon Dioxide 27 Anion Gap 6 BUN 16 Creatinine 0.88 Est GFR ( Amer) > 60 Est GFR (Non-Af Amer) > 60 Glucose 110 Calcium 8.6 TSH 0.34 L Free T4 1.80 Impressions: Chest X-Ray 06/06/17 23:16 IMPRESSION: No acute cardiopulmonary findings. Head CT 06/06/17 23:16 IMPRESSION: No acute findings. Assessment & Plan - Diagnosis (1) Electrolyte imbalance Is this a current diagnosis for this admission?: Yes Plan: Secondary to vomiting and diarrhea the patient had profound hypokalemia which has improved Some hyponatremia is persistent We will change the IV fluids to normal saline Repeat BMP in a.m. (2) Chronic back pain Is this a current diagnosis for this admission?: Yes (3) Vomiting and diarrhea Is this a current diagnosis for this admission?: Yes Plan: Resolved (4) Depression Is this a current diagnosis for this admission?: Yes Plan: Continue Zoloft (5) Weakness Is this a current diagnosis for this admission?: Yes Plan: Secondary to electrolyte imbalance Extreme weakness also secondary to opiates We will reevaluate the pain meds Change oxycodone to as needed Treat pain with gabapentin (6) Obstructive sleep apnea Is this a current diagnosis for this admission?: Yes (7) Low TSH level Is this a current diagnosis for this admission?: Yes Plan: Patient's thyroid supplements were decreased to 0.1 mg prior to admission TSH is still low Levothyroxine was decreased from 0.112 to 0.1 daily Thyroid function to be rechecked in 2-3 weeks (8) Ambulatory dysfunction Is this a current diagnosis for this admission?: Yes Plan: Patient is a candidate for short-term rehab Discharge in a.m. if a bed is available - Time Time Spent with patient: 25-34 minutes
[2017-06-08] MEDS: NORMAL SALINE 1000 ML 1,000 ML IV PRN (14:13)
[2017-06-08] MEDS: GABAPENTIN 300 MG CAPSULE PO SCH (21:30)
[2017-06-09] MEDS: NORMAL SALINE 1000 ML 1,000 ML IV PRN ×2 (05:41→18:17)
[2017-06-09] MEDS: HEPARIN SOD (PORCINE) 5,000 UNIT/ML 1 ML SYRINGE SUBCUT SCH ×3 (05:50→21:07)
[2017-06-09] MEDS: LANSOPRAZOLE 30 MG TAB.RAP.DR PO SCH (05:51)
[2017-06-09] MEDS: LEVOTHYROXINE SODIUM 0.1 MG TABLET PO SCH (05:51)
[2017-06-09 06:37] LABS: BLOOD UREA NITROGEN 8 mg/dL (7-20); CALCIUM 8.8 mg/dL (8.4-10.2); CARBON DIOXIDE 31 mmol/L (22-30); CHLORIDE 106 mmol/L (98-107); GLUCOSE 74 mg/dL (75-110); POTASSIUM 3.6 mmol/L (3.6-5.0)
[2017-06-09 06:44] LABS: SODIUM 140.3 mmol/L (137-145)
[2017-06-09 06:47] LABS: ANION GAP 3 (5-19)
[2017-06-09] MEDS: ACETAMINOPHEN 325 MG TABLET PO PRN ×2 (06:47→21:07)
[2017-06-09] MEDS: IPRATROPIUM/ALBUTEROL 0.5-2.5 MG/3 ML AMPUL NEB SCH ×2 (08:37→15:29)
[2017-06-09] MEDS: ASPIRIN 81 MG TABLET, ENT COATED PO SCH (10:25)
[2017-06-09] MEDS: METOPROLOL SUCCINATE 25 MG TAB.SR.24H PO SCH (10:25)
[2017-06-09] MEDS: GABAPENTIN 300 MG CAPSULE PO SCH ×2 (10:25→21:07)
[2017-06-09] MEDS: DOCUSATE SODIUM 100 MG CAPSULE PO SCH ×2 (10:25→18:00)
[2017-06-09] MEDS: LORATADINE 10 MG TABLET PO SCH (10:25)
[2017-06-09] MEDS: SERTRALINE HCL 50 MG TABLET PO SCH (10:25)
--- NOTE | 2017-06-09 15:00 | PDOC PROGRESS REPORT ---
Subjective Progress Note for:: 06/09/17 Subjective:: Patient is still extremely weak but she is working with physical therapy She has had no chest pain no shortness of breath Blood pressure is still extremely soft at 90/60 She has had no further diarrhea. No nausea no vomiting Reason For Visit: HYPOKALEMIA, POLY PHARM Physical Exam Vital Signs: Temp Pulse Resp BP Pulse Ox 98.2 F 61 20 96/58 L 95 06/09/17 12:00 06/09/17 12:00 06/09/17 12:00 06/09/17 12:00 06/09/17 12:00 Intake & Output 06/08/17 06/09/17 06/10/17 00:59 00:59 00:59 Intake Total 1656 3062 1267 Output Total 350 Balance 1656 3062 917 Weight 89.3 kg 80.3 kg General appearance: PRESENT: mild distress - Looks acute and chronically ill somewhat lethargic, obese Head exam: PRESENT: atraumatic, normocephalic Eye exam: PRESENT: conjunctiva pink, EOMI, PERRLA. ABSENT: scleral icterus Mouth exam: PRESENT: dry mucosa Neck exam: ABSENT: carotid bruit, JVD, lymphadenopathy, thyromegaly Respiratory exam: PRESENT: clear to auscultation link. ABSENT: rales, rhonchi, wheezes Pulses: PRESENT: normal dorsalis pedis pul GI/Abdominal exam: PRESENT: normal bowel sounds, soft. ABSENT: distended, guarding, mass, organolmegaly, rebound, tenderness Neurological exam: PRESENT: awake, CN II-XII grossly intact Skin exam: PRESENT: dry, intact, warm. ABSENT: cyanosis, rash Results Laboratory Results: 06/08/17 05:23 06/09/17 04:47 06/09/17 04:47 Sodium 140.3 Potassium 3.6 Chloride 106 Carbon Dioxide 31 H Anion Gap 3 L BUN 8 Creatinine 0.64 Est GFR ( Amer) > 60 Est GFR (Non-Af Amer) > 60 Glucose 74 L Calcium 8.8 Impressions: Chest X-Ray 06/06/17 23:16 IMPRESSION: No acute cardiopulmonary findings. Head CT 06/06/17 23:16 IMPRESSION: No acute findings. Assessment & Plan - Diagnosis (1) Electrolyte imbalance Is this a current diagnosis for this admission?: Yes Plan: Electrolytes are improved We will continue IV fluids for another 24 hours and then discontinue (2) Chronic back pain Is this a current diagnosis for this admission?: Yes (3) Vomiting and diarrhea Is this a current diagnosis for this admission?: Yes Plan: Resolved (4) Depression Is this a current diagnosis for this admission?: Yes (5) Weakness Is this a current diagnosis for this admission?: Yes (6) Obstructive sleep apnea Is this a current diagnosis for this admission?: Yes (7) Low TSH level Is this a current diagnosis for this admission?: Yes (8) Ambulatory dysfunction Is this a current diagnosis for this admission?: Yes (9) Hypotension Qualifiers: Hypotension type: unspecified hypotension type Qualified Code(s): I95.9 - Hypotension, unspecified Is this a current diagnosis for this admission?: Yes Plan: We will hold Toprol-XL at this time - Time Time Spent with patient: Patient is still waiting for a bed in rehab Continue present management Time Spent with patient: 25-34 minutes
[2017-06-09] MEDS ORDERED: ONDANSETRON HCL INJ/PF 4 MG/2 ML SDV IV PRN (15:30)
[2017-06-09] MEDS: NYSTATIN TOPICAL POWDER 15 GM TP SCH (18:17)
[2017-06-09 19:57] LABS: CREATINE KINASE MB 2.24 ng/mL (<4.55); TROPONIN I 0.013 ng/mL
--- NOTE | 2017-06-09 21:15 | EKG REPORT ---
SEVERITY:- ABNORMAL ECG - ATRIAL-PACED COMPLEXES FIRST DEGREE AV BLOCK NONSPECIFIC INTRAVENTRICULAR CONDUCTION DELAY INFERIOR INFARCT, AGE INDETERMINATE ABNRM R PROG, CONSIDER ASMI OR LEAD PLACEMENT NON SPECIFIC T INVERSION ANTERIOR LEADS, CONSIDER ISCHEMIA IN DD : Confirmed by: Carlota Perez 09-Jun-2017 21:15:17
[2017-06-10] MEDS: IPRATROPIUM/ALBUTEROL 0.5-2.5 MG/3 ML AMPUL NEB SCH ×3 (00:11→16:15)
[2017-06-10 01:52] LABS: CREATINE KINASE MB 1.86 ng/mL (<4.55); TROPONIN I 0.013 ng/mL
[2017-06-10] MEDS ORDERED: NORMAL SALINE 1000 ML 1,000 ML IV ONE (03:45)
[2017-06-10] MEDS ORDERED: NORMAL SALINE 500 ML IV ONE (05:00)
[2017-06-10] MEDS: LANSOPRAZOLE 30 MG TAB.RAP.DR PO SCH (05:01)
[2017-06-10] MEDS: HEPARIN SOD (PORCINE) 5,000 UNIT/ML 1 ML SYRINGE SUBCUT SCH ×3 (05:01→21:19)
[2017-06-10] MEDS: LEVOTHYROXINE SODIUM 0.1 MG TABLET PO SCH (05:05)
[2017-06-10] MEDS: NORMAL SALINE 1000 ML 1,000 ML IV PRN ×2 (05:30→12:14)
[2017-06-10 08:06] LABS: CREATINE KINASE MB 1.54 ng/mL (<4.55)
[2017-06-10 08:08] LABS: TROPONIN I < 0.012 ng/mL
[2017-06-10] MEDS: GABAPENTIN 300 MG CAPSULE PO SCH (10:02)
[2017-06-10] MEDS: NYSTATIN TOPICAL POWDER 15 GM TP SCH ×2 (10:02→17:12)
[2017-06-10] MEDS: ASPIRIN 81 MG TABLET, ENT COATED PO SCH (10:02)
[2017-06-10] MEDS: LORATADINE 10 MG TABLET PO SCH (10:03)
[2017-06-10] MEDS: DOCUSATE SODIUM 100 MG CAPSULE PO SCH ×2 (10:03→17:12)
[2017-06-10] MEDS: SERTRALINE HCL 50 MG TABLET PO SCH (10:03)
[2017-06-10] MEDS ORDERED: ONDANSETRON HCL INJ/PF 4 MG/2 ML SDV IV PRN (11:13)
--- NOTE | 2017-06-10 12:48 | RADIOLOGY REPORT (SQ) ---
EXAM DESCRIPTION: KUB/ABDOMEN (SINGLE VIEW) COMPLETED DATE/TIME: 06/10/2017 11:42 am REASON FOR STUDY: ABD PAIN E03.9 HYPOTHYROIDISM, UNSPECIFIED COMPARISON: None. NUMBER OF VIEWS: One view. TECHNIQUE: Supine radiographic image of the abdomen acquired. LIMITATIONS: Right lateral abdominal wall cropped from the field of view FINDINGS: BOWEL GAS PATTERN: Normal bowel gas pattern. No dilated loops. CALCIFICATIONS: No suspicious calcifications. SOFT TISSUES: No gross mass or suggestion of organomegaly. HARDWARE: Clips right upper quadrant likely post cholecystectomy. Few surgical clips in the right lo wer quadrant, question prior appendectomy. BONES: No acute fracture. No worrisome bone lesions. OTHER: No other significant finding. IMPRESSION: Nonobstructive bowel gas pattern TECHNICAL DOCUMENTATION: JOB ID: [id number] [employer]- All Rights Reserved Reading location - IP/workstation name: [email or web address]
[2017-06-10 12:51] LABS: ALANINE AMINOTRANSFERASE 43 U/L (9-52); ALBUMIN 2.6 g/dL (3.5-5.0); ALKALINE PHOSPHATASE 47 U/L (38-126); ASPARTATE AMINO TRANSFERASE 20 U/L (14-36); BILIRUBIN,DIRECT 0.2 mg/dL (0.0-0.4); BILIRUBIN,TOTAL 0.3 mg/dL (0.2-1.3); BLOOD UREA NITROGEN 8 mg/dL (7-20); CALCIUM 8.8 mg/dL (8.4-10.2); CHLORIDE 105 mmol/L (98-107); GLUCOSE 88 mg/dL (75-110); TOTAL PROTEIN 4.2 g/dL (6.3-8.2)
[2017-06-10 12:57] LABS: ANION GAP 2 (5-19); CARBON DIOXIDE 34 mmol/L (22-30); SODIUM 140.6 mmol/L (137-145)
--- NOTE | 2017-06-10 18:03 | PDOC PROGRESS REPORT ---
Subjective Progress Note for:: 06/10/17 Subjective:: Patient is complaining of epigastric pain she has been feeling nauseous No fever no chills Patient denies constipation she is somewhat more lethargic Reason For Visit: HYPOKALEMIA, POLY PHARM Physical Exam Vital Signs: Temp Pulse Resp BP Pulse Ox 98.7 F 87 18 115/73 96 06/10/17 15:11 06/10/17 16:15 06/10/17 16:15 06/10/17 15:11 06/10/17 16:15 Intake & Output 06/09/17 06/10/17 06/11/17 00:59 00:59 00:59 Intake Total 3062 2651 3586 Output Total 350 Balance 3062 2301 3586 Weight 89.3 kg 80.3 kg 87.4 kg General appearance: PRESENT: mild distress - Because of pain, well-nourished Head exam: PRESENT: atraumatic, normocephalic Eye exam: PRESENT: conjunctiva pink, EOMI, PERRLA. ABSENT: scleral icterus Neck exam: ABSENT: carotid bruit, JVD, lymphadenopathy, thyromegaly Respiratory exam: PRESENT: clear to auscultation link. ABSENT: rales, rhonchi, wheezes Cardiovascular exam: PRESENT: RRR. ABSENT: diastolic murmur, rubs, systolic murmur GI/Abdominal exam: PRESENT: tenderness - Epigastrium without guarding or rebound. ABSENT: guarding, rebound Extremities exam: PRESENT: full ROM. ABSENT: calf tenderness, clubbing, pedal edema Results Laboratory Results: 06/08/17 05:23 06/10/17 11:53 06/10/17 11:53 Sodium 140.6 Potassium 4.0 Chloride 105 Carbon Dioxide 34 H Anion Gap 2 L BUN 8 Creatinine 0.63 Est GFR ( Amer) > 60 Est GFR (Non-Af Amer) > 60 Glucose 88 Calcium 8.8 Magnesium 1.7 Total Bilirubin 0.3 AST 20 ALT 43 Alkaline Phosphatase 47 Total Protein 4.2 L Albumin 2.6 L 06/09/17 06/09/17 06/10/17 19:17 19:17 01:19 Creatine Kinase 73 65 CK-MB (CK-2) 2.24 Troponin I 0.013 06/10/17 06/10/17 06/10/17 01:19 07:08 07:08 Creatine Kinase 52 CK-MB (CK-2) 1.86 1.54 Troponin I 0.013 < 0.012 Impressions: Chest X-Ray 06/06/17 23:16 IMPRESSION: No acute cardiopulmonary findings. Head CT 06/06/17 23:16 IMPRESSION: No acute findings. KUB X-Ray 06/10/17 11:13 IMPRESSION: Nonobstructive bowel gas pattern Assessment & Plan - Diagnosis (1) Electrolyte imbalance Is this a current diagnosis for this admission?: Yes (2) Chronic back pain Is this a current diagnosis for this admission?: Yes (3) Vomiting and diarrhea Is this a current diagnosis for this admission?: Yes (4) Depression Is this a current diagnosis for this admission?: Yes (5) Weakness Is this a current diagnosis for this admission?: Yes (6) Obstructive sleep apnea Is this a current diagnosis for this admission?: Yes (7) Low TSH level Is this a current diagnosis for this admission?: Yes (8) Ambulatory dysfunction Is this a current diagnosis for this admission?: Yes (9) Hypotension Qualifiers: Hypotension type: unspecified hypotension type Qualified Code(s): I95.9 - Hypotension, unspecified Is this a current diagnosis for this admission?: Yes (10) Abdominal pain Qualifiers: Abdominal location: epigastric Qualified Code(s): R10.13 - Epigastric pain Is this a current diagnosis for this admission?: Yes Plan: KUB was performed and it was unremarkable Patient has a history of GERD she is status post cholecystectomy We will do some lab test in a.m. including lipase We will treat the patient with PPI and Carafate We will reevaluate in a.m. Patient does have a bed for rehab and she may be transferred whenever stable - Time Time Spent with patient: 25-34 minutes
[2017-06-10] MEDS: ACETAMINOPHEN 325 MG TABLET PO PRN (19:55)
--- NOTE | 2017-06-10 21:41 | EKG REPORT ---
SEVERITY:- ABNORMAL ECG - SINUS RHYTHM FIRST DEGREE AV BLOCK NONSPECIFIC INTRAVENTRICULAR CONDUCTION DELAY INFERIOR INFARCT, AGE INDETERMINATE BORDERLINE T ABNORMALITIES, ANT LEADS : Confirmed by: Carlota Perez 10-Jun-2017 21:41:32
[2017-06-11] MEDS: IPRATROPIUM/ALBUTEROL 0.5-2.5 MG/3 ML AMPUL NEB SCH ×2 (00:03→08:17)
[2017-06-11] MEDS: ACETAMINOPHEN 325 MG TABLET PO PRN (01:44)
[2017-06-11] MEDS: NORMAL SALINE 1000 ML 1,000 ML IV PRN (01:45)
[2017-06-11] MEDS: HEPARIN SOD (PORCINE) 5,000 UNIT/ML 1 ML SYRINGE SUBCUT SCH (05:04)
[2017-06-11] MEDS: LEVOTHYROXINE SODIUM 0.1 MG TABLET PO SCH (05:26)
[2017-06-11] MEDS: LANSOPRAZOLE 30 MG TAB.RAP.DR PO SCH (05:26)
[2017-06-11] MEDS: ASPIRIN 81 MG TABLET, ENT COATED PO SCH (09:44)
[2017-06-11] MEDS: NYSTATIN TOPICAL POWDER 15 GM TP SCH (09:44)
[2017-06-11] MEDS: LORATADINE 10 MG TABLET PO SCH (09:44)
[2017-06-11] MEDS: DOCUSATE SODIUM 100 MG CAPSULE PO SCH (09:45)
[2017-06-11 12:29] VITALS: BP 121/57
--- NOTE | 2017-06-11 12:30 | PDOC TRANSFER SUMMARY ---
General - Admit/Disc Date/PCP Admission Date/Primary Care Provider: 06/07/17 12:03 FARHAN SILVER Discharge Date: 06/11/17 - Discharge Diagnosis (1) Electrolyte imbalance Is this a current diagnosis for this admission?: Yes (2) Chronic back pain Is this a current diagnosis for this admission?: Yes (3) Vomiting and diarrhea Is this a current diagnosis for this admission?: Yes (4) Depression Is this a current diagnosis for this admission?: Yes (5) Weakness Is this a current diagnosis for this admission?: Yes (6) Obstructive sleep apnea Is this a current diagnosis for this admission?: Yes (7) Low TSH level Is this a current diagnosis for this admission?: Yes (8) Ambulatory dysfunction Is this a current diagnosis for this admission?: Yes (9) Hypotension Is this a current diagnosis for this admission?: Yes (10) Abdominal pain Is this a current diagnosis for this admission?: Yes - Additional Information Resuscitation Status: Full Code Prescriptions: Levothyroxine Sodium [Synthroid 0.1 mg Tablet] 0.1 mg PO Q6AM 30 Days #30 tablet Nystatin [Mycostatin Topical Powder 15 gm] 1 applic TP BID #1 bottle Sucralfate [Carafate Susp 1 Gm/10 Ml Udcup] 1 gm PO BID 30 Days #60 ml Home Medications: Aspirin [Aspirin EC] 81 mg PO DAILY 06/07/17 Cetirizine HCl [Zyrtec 10 mg Tablet] 10 mg PO DAILY 06/07/17 Ezetimibe [Zetia 10 mg Tablet] 10 mg PO DAILY 06/07/17 Metoprolol Succinate [Toprol Xl 25 mg Tab.sr] 25 mg PO DAILY 06/07/17 Levothyroxine Sodium [Synthroid 0.1 mg Tablet] 0.1 mg PO Q6AM 30 Days #30 tablet 06/11/17 Nystatin [Mycostatin Topical Powder 15 gm] 1 applic TP BID #1 bottle 06/11/17 Rabeprazole Sodium [Aciphex] 20 mg PO Q12H 30 Days #60 tab 06/11/17 Sertraline HCl [Zoloft 50 mg Tablet] 25 mg PO DAILY #30 tab 06/11/17 Sucralfate [Carafate Susp 1 Gm/10 Ml Udcup] 1 gm PO BID 30 Days #60 ml 06/11/17 History of Present Illness Admission Date/PCP: 06/07/17 12:03 FARHAN SILVER Patient complains of: nausea vomiting diarrhea History of Present Illness: NATALI BATISTA is a 72 year old female with a past medical history of chronic back pain, permanent pacemaker, COPD, obstructive sleep apnea, depression and hypothyroidism. Patient presents with 48 hours of nausea vomiting and diarrhea without blood or fever. In the emergency room she is found to have an odd affect but alert and oriented 3. Patient's son is at bedside providing history of new medications including Synthroid and an antidepressant started 72 hours ago. In the emergency room the patient is found to have prerenal azotemia, hypokalemia, and a bicarbonate of 39. Patient admits noncompliance with CPAP, chronic fatigue and generalized weakness. Hospital Course Hospital Course: (1) Electrolyte imbalance 06/06/17 06/07/17 06/08/17 23:56 10:51 05:23 Potassium 2.6 L* 2.5 L* 3.7 D 06/09/17 06/10/17 04:47 11:53 Potassium 3.6 4.0 Patient was admitted with profound hypokalemia She was on Hy[place] and Lasix while at home These medications were discontinued She was given potassium supplements and a discharge potassium was normal (2) Chronic back pain Patient was intermittently on opiates for chronic back pain We did discontinue oxycodone as she was extremely lethargic Patientwill be given small doses of gabapentin to treat her pain (3) Vomiting and diarrhea Resolved; KUB was performed and was normal patient does have significant GERD and heartburn She was given Carafate at discharge added to AcipHex (4) dysphasia Patient was evaluated by speech She was placed on mechanical soft ground meats (5) Obstructive sleep apnea Patient has been prescribed a CPAP in the past She does not tolerated and does not wear it at night (7) Low TSH level Levothyroxine was decreased to 100 mcg daily We suggest a repeat TSH and T4 normal Physical Exam Vital Signs: Temp Pulse Resp BP Pulse Ox 97.8 F 73 24 H 121/57 L 99 06/11/17 12:00 06/11/17 11:27 06/11/17 11:27 06/11/17 11:27 06/11/17 11:27 Intake & Output 06/10/17 06/11/17 06/12/17 00:59 00:59 00:59 Intake Total 2651 4160 1100 Output Total 350 Balance 2301 4160 1100 Weight 80.3 kg 87.4 kg 78.2 kg General appearance: PRESENT: mild distress - Because of pain, well-nourished Head exam: PRESENT: atraumatic, normocephalic Eye exam: PRESENT: conjunctiva pink, EOMI, PERRLA. ABSENT: scleral icterus Neck exam: ABSENT: carotid bruit, JVD, lymphadenopathy, thyromegaly Respiratory exam: PRESENT: clear to auscultation link. ABSENT: rales, rhonchi, wheezes Cardiovascular exam: PRESENT: RRR. ABSENT: diastolic murmur, rubs, systolic murmur GI/Abdominal exam: PRESENT: tenderness - Epigastrium without guarding or rebound. ABSENT: guarding, rebound Extremities exam: PRESENT: full ROM. ABSENT: calf tenderness, clubbing, pedal edema Results Laboratory Results: 06/08/17 05:23 06/10/17 11:53 06/10/17 11:53 Sodium 140.6 Potassium 4.0 Chloride 105 Carbon Dioxide 34 H Anion Gap 2 L BUN 8 Creatinine 0.63 Est GFR ( Amer) > 60 Est GFR (Non-Af Amer) > 60 Glucose 88 Calcium 8.8 Magnesium 1.7 Total Bilirubin 0.3 AST 20 ALT 43 Alkaline Phosphatase 47 Total Protein 4.2 L Albumin 2.6 L 06/09/17 06/09/17 06/10/17 19:17 19:17 01:19 Creatine Kinase 73 65 CK-MB (CK-2) 2.24 Troponin I 0.013 06/10/17 06/10/17 06/10/17 01:19 07:08 07:08 Creatine Kinase 52 CK-MB (CK-2) 1.86 1.54 Troponin I 0.013 < 0.012 Impressions: Chest X-Ray 06/06/17 23:16 IMPRESSION: No acute cardiopulmonary findings. Head CT 06/06/17 23:16 IMPRESSION: No acute findings. KUB X-Ray 06/10/17 11:13 IMPRESSION: Nonobstructive bowel gas pattern Transfer Plan - Time Spent with Patient Time spent with patient: Greater than 30 Minutes Qualifiers - * PATEINT BEING DISCHARGED WITH ANY OF THE FOLLOWING DIAGNOSIS?: No
== END 2017-06-11 16:25 | DRG 641 ==
LOC: ER 22:16 → EH 06-07 04:52 → 4W 06-07 08:17 → OBSVTOIN 06-07 12:03
PROVIDERS: ADMIT Internal Medicine; ATTEND Internal Medicine
DX: E87.6 Hypokalemia (principal); E87.1 Hypo-osmolality and hyponatremia; E86.0 Dehydration; G89.29 Other chronic pain; J44.9 Chronic obstructive pulmonary disease, unspecified; G47.33 Obstructive sleep apnea (adult) (pediatric); F32.9 Major depressive disorder, single episode, unspecified; Z79.899 Other long term (current) drug therapy; G43.909 Migraine, unspecified, not intractable, without status migrainosus; K44.9 Diaphragmatic hernia without obstruction or gangrene; M19.90 Unspecified osteoarthritis, unspecified site; E05.80 Other thyrotoxicosis without thyrotoxic crisis or storm; K21.9 Gastro-esophageal reflux disease without esophagitis; E03.9 Hypothyroidism, unspecified; R47.02 Dysphasia; M54.9 Dorsalgia, unspecified; I95.9 Hypotension, unspecified; Z88.1 Allergy status to other antibiotic agents; Z88.5 Allergy status to narcotic agent; Z88.2 Allergy status to sulfonamides; Z88.8 Allergy status to other drugs, medicaments and biological substances; Z88.0 Allergy status to penicillin; Z82.5 Family history of asthma and other chronic lower respiratory diseases; Z82.49 Family history of ischemic heart disease and other diseases of the circulatory system; Z80.9 Family history of malignant neoplasm, unspecified; Z90.49 Acquired absence of other specified parts of digestive tract; Z90.710 Acquired absence of both cervix and uterus; Z95.0 Presence of cardiac pacemaker
CPT/HCPCS: 36415; 36600; 70450; 71045; 74018; 80048; 80053; 80307; 81001; 82550; 82553; 82803; 83735; 84100; 84439; 84443; 84481; 84484; 85025; 93005; 93010; 96374; 96376; 99285; G0378; G8978-GP; G8979-GP; G8996-GN; G8997-GN; G8998-GN; J1644; J2310; J2405; J3480; J3490; J7030; J7040; J7620

== ENCOUNTER 2017-12-30 15:17 | Day surgery (SDC) | payer MEDICARE, MEDICAID ==
[2017-12-30] MEDS ORDERED: NALOXONE HCL INJ/PF 0.4 MG/1 ML SDV ONE (15:35)
[2017-12-30] MEDS ORDERED: ONDANSETRON HCL INJ/PF 4 MG/2 ML SDV ONE (15:35)
[2017-12-30] MEDS ORDERED: FLUMAZENIL INJ 0.5 MG/5 ML VIAL ONE (15:35)
[2017-12-30] MEDS ORDERED: MIDAZOLAM 2 MG/2 ML INJ ONE (15:35)
[2017-12-30] MEDS ORDERED: FENTANYL CITRATE INJ/PF 100 MCG/2 ML AMPUL ONE (15:35)
[2017-12-30] MEDS ORDERED: EPINEPHRINE INJ 1 MG/10 ML DISP.SYRIN ONE (15:36)
[2017-12-30] MEDS ORDERED: GLUCAGON,HUMAN RECOMB 1 MG INJ ONE (15:36)
--- NOTE | 2017-12-30 16:43 | Operative Report ---
Operative Report DATE OF SURGERY: 12/30/17 Operative Report: Pre-op diagnosis: Dysphagia Post-op diagnosis: 1. GE junction stricture 2. Hiatal hernia Surgery: Esophagogastroduodenoscopy with biopsy and balloon dilation Medications: Versed mg Fentanyl mcg IV push Tissue removed: Antral and gastric body biopsy for pathology Procedure: After informed consent obtained from patient, the throat was sprayed with Hurricane and conscious sedation was achieved. The upper endoscope was inserted into the esophagus under direct vision and advanced into the stomach. The duodenum was entered and examined to the second part. Endoscope was then slowly pulled out of the patient as the mucosa was examined into details. Patient tolerated procedure well. Findings Esophagus: There was stenosis at the GE junction just above a 4 cm hiatal hernia. The Z line was at 32 cm Antrum: Normal Body: Normal Fundus: Normal Duodenum first part: Normal Duodenum second part: Normal Plan: Await pathology. Continue omeprazole 20 mg daily OPERATION: .
[2017-12-30 17:23] VITALS: BP 124/86
== END 2017-12-30 17:20 ==
LOC: END 15:17
PROVIDERS: ATTEND Internal Medicine Gastroenterology
DX: K22.2 Esophageal obstruction (principal); K44.9 Diaphragmatic hernia without obstruction or gangrene; K29.50 Unspecified chronic gastritis without bleeding; K58.9 Irritable bowel syndrome, unspecified; E03.9 Hypothyroidism, unspecified; J45.909 Unspecified asthma, uncomplicated; M19.90 Unspecified osteoarthritis, unspecified site; E66.9 Obesity, unspecified; Z79.899 Other long term (current) drug therapy; Z79.82 Long term (current) use of aspirin; Z99.81 Dependence on supplemental oxygen; Z88.0 Allergy status to penicillin; Z88.5 Allergy status to narcotic agent; Z88.2 Allergy status to sulfonamides; Z95.0 Presence of cardiac pacemaker; Z68.34 Body mass index [BMI] 34.0-34.9, adult
CPT/HCPCS: 43239; 43249; 88342 ×2; 88305 ×2; C1726; J2250; J3010; J2310; J0171; J1610; J2405; J3490

== ENCOUNTER 2018-01-08 22:44 | Emergency (ER) | payer MEDICARE, MEDICAID ==
[2018-01-08 23:34] LABS: ABSOLUTE BASOPHILS # (AUTO) 0.1 10^3/uL (0.0-0.2); ABSOLUTE EOSINOPHILS # (AUTO) 0.1 10^3/uL (0.0-0.6); ABSOLUTE LYMPHOCYTES (AUTO) 1.8 10^3/uL (0.5-4.7); ABSOLUTE MONOCYTES (AUTO) 0.6 10^3/uL (0.1-1.4); ABSOLUTE NEUT (AUTO) 3.3 10^3/uL (1.7-8.2); BASOPHILS % (AUTO) 1.4 % (0-2); EOSINOPHILS % (AUTO) 2.1 % (0-6); HEMATOCRIT 38.4 % (36.0-47.0); HEMOGLOBIN 12.6 g/dL (12.0-15.5); LYMPHOCYTES % (AUTO) 30.8 % (13-45); MEAN CORPUSCULAR HGB CONC 32.8 g/dL (32.0-36.0); MEAN CORPUSCULAR VOLUME 89 fl (80-97); MONOCYTES % (AUTO) 10.8 % (3-13); PLATELET COUNT 266 10^3/uL (150-450); RED BLOOD COUNT 4.34 10^6/uL (3.72-5.28); RED CELL DISTRIBUTION WIDTH 14.4 % (11.5-14.0); SEGMENTED NEUTROPHILS % (AUTO) 54.9 % (42-78); TOTAL CELLS COUNTED % (AUTO) 100 %
--- NOTE | 2018-01-08 23:37 | RADIOLOGY REPORT (SQ) ---
EXAM DESCRIPTION: XR CHEST 1 VIEW COMPLETED DATE/TME: 01/08/2018 23:05 CLINICAL HISTORY: 72 years, Female, cp COMPARISON: 06/06/2017 chest x-ray NUMBER OF VIEWS: 1 TECHNIQUE: Frontal view the chest LIMITATIONS: None. FINDINGS: Cardiomegaly with ectasia of the thoracic aorta. Left-sided pacing device. Calcified granuloma right upper lobe. Lungs are otherwise clear. No pneumothorax IMPRESSION: Stable cardiomegaly. No acute cardiopulmonary process 2010 [facility] [employer]- All Rights Reserved
[2018-01-08 23:48] LABS: ANION GAP 8 (5-19); BLOOD UREA NITROGEN 24 mg/dL (7-20); CALCIUM 8.6 mg/dL (8.4-10.2); CARBON DIOXIDE 29 mmol/L (22-30); CHLORIDE 105 mmol/L (98-107); GLUCOSE 89 mg/dL (75-110); POTASSIUM 4.7 mmol/L (3.6-5.0); SODIUM 141.8 mmol/L (137-145)
--- NOTE | 2018-01-09 00:25 | ER Document Report ---
ED General - General Chief Complaint: Chest Pain Stated Complaint: CHEST PAIN Notes: Patient is a 72-year old female with a past medical history of hypothyroidism, hypertension who presents with an episode of chest pain that has now resolved. The patient reports that this occurred earlier this evening. The patient described it as a pain or pressure the left side of her chest that completely resolved after receiving nitroglycerin. The patient states that she is uncertain of whether or not she has had similar pains in the past. She denies any associated shortness of breath, nausea, vomiting or diaphoresis. She denies any known history of coronary artery disease. She has not contacted her primary care doctor regarding today's concerns. She does arrive by EMS from the nursing facility. TRAVEL OUTSIDE OF THE [place] IN LAST 30 DAYS: No - Related Data Allergies/Adverse Reactions: ciprofloxacin [From Cipro] Allergy (Mild, Verified 12/30/17 15:38) rash codeine [Codeine] Allergy (Mild, Verified 12/30/17 15:38) rash esomeprazole magnesium [From Nexium] Allergy (Mild, Verified 12/30/17 15:38) rash oxycodone HCl [From Percodan] Allergy (Mild, Verified 12/30/17 15:38) syomach upset pentazocine lactate [From Talwin] Allergy (Mild, Verified 12/30/17 15:38) rash propoxyphene napsylate [From Darvocet-N 100] Allergy (Mild, Verified 12/30/17 15 :38) rash Sulfa (Sulfonamide Antibiotics) Allergy (Mild, Verified 12/30/17 15:38) rash Tetanus Vaccines and Toxoid [Tetanus] Allergy (Mild, Verified 12/30/17 15:38) arm swelled valsartan [From Diovan] Allergy (Verified 12/30/17 15:38) rash Penicillins Adverse Reaction (Mild, Verified 12/30/17 15:38) Hives propn apap Allergy (Mild, Uncoded 12/30/17 15:38) rash tolvan Allergy (Mild, Uncoded 12/30/17 15:38) rash Past Medical History - General Information source: Patient - Social History Smoking Status: Never Smoker Frequency of alcohol use: None Drug Abuse: None Lives with: Jail Family History: Arthritis, CAD, Malignancy, Thyroid Disfunction Patient has suicidal ideation: No Patient has homicidal ideation: No - Past Medical History Cardiac Medical History: Reports: Hx Hypercholesterolemia, Hx Hypertension Denies: Hx Coronary Artery Disease, Hx Heart Attack Pulmonary Medical History: Reports: Hx Asthma Denies: Hx Bronchitis, Hx COPD, Hx Pneumonia Neurological Medical History: Reports: Hx Migraine. Denies: Hx Cerebrovascular Accident, Hx Seizures Endocrine Medical History: Reports: Hx Hypothyroidism Renal/ Medical History: Denies: Hx Peritoneal Dialysis GI Medical History: Reports: Hx Gastroesophageal Reflux Disease, Hx Hiatal Hernia, Hx Irritable Bowel Musculoskeletal Medical History: Reports Hx Arthritis Psychiatric Medical History: Reports: Hx Depression Past Surgical History: Reports: Hx Appendectomy, Hx Cholecystectomy, Hx Dilation and Curettage, Hx Hysterectomy, Hx Kidney (Renal Surgery) - removed 1981, Hx Pacemaker, Hx Tonsillectomy - Immunizations Immunizations up to date: No Hx Diphtheria, Pertussis, Tetanus Vaccination: No Hx Pneumococcal Vaccination: 01/23/12 Review of Systems - Review of Systems Notes: Constitutional: Negative for fever. HENT: Negative for sore throat. Eyes: Negative for visual changes. Cardiovascular: Positive for chest pain. Respiratory: Negative for shortness of breath. Gastrointestinal: Negative for abdominal pain, vomiting or diarrhea. Genitourinary: Negative for dysuria. Musculoskeletal: Negative for back pain. Skin: Negative for rash. Neurological: Negative for headaches, weakness or numbness. 10 point ROS negative except as marked above and in HPI. Physical Exam - Vital signs Vitals: Resp Pulse Ox 15 93 01/08/18 23:02 01/08/18 23:02 Interpretation: Normal Notes: PHYSICAL EXAMINATION: GENERAL: Well-appearing, well-nourished and in no acute distress. HEAD: Atraumatic, normocephalic. EYES: Pupils equal round and reactive to light, extraocular movements intact, sclera anicteric, conjunctiva are normal. ENT: nares patent, oropharynx clear without exudates. Moist mucous membranes. NECK: Normal range of motion, supple without lymphadenopathy LUNGS: Breath sounds clear to auscultation bilaterally and equal. No wheezes rales or rhonchi. HEART: Regular rate and rhythm without murmurs ABDOMEN: Soft, nontender, normoactive bowel sounds. No guarding, no rebound. No masses appreciated. EXTREMITIES: Normal range of motion, no pitting or edema. No cyanosis. NEUROLOGICAL: No focal neurological deficits. Moves all extremities spontaneously and on command. PSYCH: Normal mood, normal affect. SKIN: Warm, Dry, normal turgor, no rashes or lesions noted. Course - Re-evaluation Re-evalutation: 01/09/18 00:23 Presentation of chest pain in an otherwise well appearing patient. Low clinical suspicion for ACS given clinical history, exam, EKG without ST elevations or depressions, and negative initial troponin. HEART score less than or equal to 3. PE also seems unlikely given clinical history, absence of tachycardia or dyspnea. Wells score 0. CXR without evidence of pneumothorax or pneumonia. No widened mediastinum. Aortic dissection also seems unlikely given history, symmetric pulses, CXR, and vitals. 01/09/18 03:15 Repeat troponin remains normal. Patient remains chest pain-free. At this time will discharge with return precautions and follow-up recommendations. Verbal discharge instructions given a the bedside and opportunity for questions given. Medication warnings reviewed. Patient is in agreement with this plan and has verbalized understanding of return precautions and the need for primary care follow-up in the next 24-72 hours. - Vital Signs Vital signs: Temp Pulse Resp BP Pulse Ox 18 104/62 92 01/09/18 03:00 01/09/18 02:01 01/09/18 03:00 - Laboratory Result Diagrams: 01/08/18 23:24 01/08/18 23:24 Laboratory results interpreted by me: 01/08/18 01/08/18 23:24 23:24 RDW 14.4 H BUN 24 H Est GFR (Non-Af Amer) 53 L - Diagnostic Test Radiology reviewed: Image reviewed, Reports reviewed Radiology results interpreted by me: 01/09/18 01:41 Chest x-ray: No acute infiltrate or pneumothorax - EKG Interpretation by Me Additional EKG results interpreted by me: 01/09/18 00:25 Atrially sensed ventricularly paced rhythm. Rate 60. Discharge - Discharge Clinical Impression: Chest pain Qualifiers: Chest pain type: unspecified Qualified Code(s): R07.9 - Chest pain, unspecified Condition: Good Disposition: HOME, SELF-CARE Additional Instructions: You were seen today for chest pain. The exact cause of your pain is unclear. However, based on your cardiac enzyme testing, chest x-ray, and EKG it does not appear that it is from an immediately life-threatening cause at this time. Although your testing here is normal is critical that you follow-up with your primary care physician for continued evaluation of this chest pain and possible stress testing. I recommended you see your physician within the next 24-48 hours to be evaluated for consideration of a stress test. Please return to emergency department immediately if you have worsening of your chest pain, shortness of breath, vomiting, become unable to exert yourself due to pain or difficulty breathing, you pass out, or have any pain that radiates into your arms, jaw, or back. Please also return if you have any additional symptoms that are concerning to you. Forms: Return to Work Referrals: JEWEL HUSTON FNP [Primary Care Provider] - Follow up as needed
[2018-01-09 03:19] VITALS: BP 112/65
--- NOTE | 2018-01-09 10:42 | EKG REPORT ---
SEVERITY:- ABNORMAL ECG - ATRIAL-PACED RHYTHM LEFT BUNDLE BRANCH BLOCK : Confirmed by: Carlota Perez 09-Jan-2018 10:41:12
== END 2018-01-09 04:08 | disposition home or self-care (01) ==
LOC: ER 22:44
DX: R07.9 Chest pain, unspecified (principal); E03.9 Hypothyroidism, unspecified; I10 Essential (primary) hypertension; E78.00 Pure hypercholesterolemia, unspecified; Z88.3 Allergy status to other anti-infective agents; Z88.6 Allergy status to analgesic agent; Z88.2 Allergy status to sulfonamides; Z88.0 Allergy status to penicillin; Z90.49 Acquired absence of other specified parts of digestive tract; Z90.710 Acquired absence of both cervix and uterus
CPT/HCPCS: 36415; 71045; 80048; 84484; 85025; 93005; 93010; 99285

== ENCOUNTER 2018-06-23 15:32 | Day surgery (SDC) | payer MEDICARE, MEDICAID ==
[2018-06-23] MEDS ORDERED: ONDANSETRON HCL INJ/PF 4 MG/2 ML SDV ONE (16:52)
[2018-06-23] MEDS ORDERED: DIPHENHYDRAMINE HCL 50 MG/ML VIAL ONE (16:52)
[2018-06-23] MEDS ORDERED: EPINEPHRINE INJ 1 MG/10 ML DISP.SYRIN ONE (16:53)
[2018-06-23] MEDS ORDERED: NALOXONE HCL INJ/PF 0.4 MG/1 ML SDV ONE (16:53)
[2018-06-23] MEDS ORDERED: FENTANYL CITRATE INJ/PF 100 MCG/2 ML AMPUL ONE (16:53)
[2018-06-23] MEDS ORDERED: MIDAZOLAM 2 MG/2 ML INJ ONE (16:53)
[2018-06-23] MEDS ORDERED: GLUCAGON,HUMAN RECOMB 1 MG INJ ONE (16:53)
[2018-06-23] MEDS ORDERED: FLUMAZENIL INJ 0.5 MG/5 ML VIAL ONE (16:53)
--- NOTE | 2018-06-23 17:32 | Operative Report ---
Operative Report DATE OF SURGERY: 06/23/18 Operative Report: Pre-op diagnosis: Dysphagia Post-op diagnosis: 1. Mild antral gastritis 2. 6 cm hiatal hernia 3. Mild GE junction stricture Surgery: Esophagogastroduodenoscopy with biopsy and balloon dilation Medications: Versed 1mg Fentanyl 50mcg IV push Tissue removed: Antral and gastric body biopsy for pathology Procedure: After informed consent obtained from patient, the throat was sprayed with Hurricane and conscious sedation was achieved. The upper endoscope was inserted into the esophagus under direct vision and advanced into the stomach. The duodenum was entered and examined to the second part. Endoscope was then slowly pulled out of the patient as the mucosa was examined into details. Patient tolerated procedure well. Findings Esophagus: Minimal narrowing was noted just above a large hernia. This was dilated with a 20 mm balloon but there was no break in the mucosa. Antrum: Mild erythema Body: Normal Fundus: Normal Duodenum first part: Normal Duodenum second part: Normal Plan: Await pathology. Continue omeprazole OPERATION: .
[2018-06-23 18:23] VITALS: BP 140/74
== END 2018-06-23 18:15 ==
LOC: END 15:32
PROVIDERS: ATTEND Internal Medicine Gastroenterology
DX: K21.9 Gastro-esophageal reflux disease without esophagitis (principal); K29.50 Unspecified chronic gastritis without bleeding; K22.2 Esophageal obstruction; K44.9 Diaphragmatic hernia without obstruction or gangrene; K31.89 Other diseases of stomach and duodenum; K58.9 Irritable bowel syndrome, unspecified; E03.9 Hypothyroidism, unspecified; J45.909 Unspecified asthma, uncomplicated; G71.11 Myotonic muscular dystrophy
CPT/HCPCS: 43239; 43249; 88305 ×2; C1726; J2250; J3010; J0171; J1200; J1610; J2310; J2405; J3490

== ENCOUNTER → 2018-12-09 | Outpatient (CLI) | payer MEDICARE, MEDICAID ==
[~2018-12-09] MED LIST: REGADENOSON INJ 0.4 MG/5 ML DISP.SYRIN IV ONE
--- NOTE | 2018-12-10 23:35 | DRAGON STRESS TEST REPORT ---
Intravenous Lexiscan Cardiolite stress test using single photon emmision computerized tomography. Date of procedure: 12/09/2018.Ordering Provider: Dr.Lakshmi Dash. Patient's status Out Patient. Indication: Chest pain. Coronary risk factors: Age, hypertension. Note at the beginning of the stress test the patient systolic blood pressure was 90. The patient is given 100 mL of normal saline which brought the blood pressure up and the stress test was done uneventfully. Resting EKG: AV paced and V paced rhythm. One PVC. The patient had no chest pain or discomfort, and there were no arrhythmias seen. Stress EKG: No changes of ischemia. Reason for termination: Protocol. Conclusions: Normal EKG and hemodynamic response to IV Lexiscan. Nuclear data: At rest the patient was given 14.91 millicuries of technetium 99m sestamibi injected intravenously. As per protocol rest non gated SPECT images were obtained. Subsequently the patient was given intravenous Lexiscan at a dose of 0.4 mg in 5 mL intravenously, followed by flush with normal saline. Subsequently the stress dose of 42.2 millicuries of technetium 99m sestamibi was injected intravenously. As per protocol stress gated images were obtained. Nuclear interpretation: Review of images showed that there is bowel contamination artifact of the inferior wall in both the rest and stress images. This area has normal motion contraction and thickening by gated study consistent with soft tissue attenuation artifact. The rest of the segments of the myocardium had normal perfusion at rest, and normal perfusion post stress with IV Lexiscan. All segments of the myocardium had normal motion, contraction, and thickening by gated study. T. I D. ratio was normal at 1.15. There is no transient ischemic dilatation of the left ventricle. Computer read rest, and stress left ventricular ejection fraction were 48 %, and 43 %, respectively. Visually both the stress and rest ejection fractions were normal, and greater than 55%. Conclusion: 1. There is no scintigraphic evidence of Lexiscan induced myocardial ischemia. 2. There is no scintigraphic evidence of myocardial infarction/scar. 3. Soft tissue attenuation artifact of the inferior wall due to bowel contamination. Recommendations: Aggressive risk factor modification, and treating the underlying co- morbidities. . Check echo for LV ejection fraction correlation. [facility]
== END ==
LOC: RAD 07:35
PROVIDERS: ATTEND Specialist
DX: R07.9 Chest pain, unspecified (principal); I10 Essential (primary) hypertension
CPT/HCPCS: 93017; 78452; A9500; J2785; Q9969

== ENCOUNTER 2019-03-17 14:12 | Emergency (ER) | payer MEDICARE, MEDICAID ==
--- NOTE | 2019-03-17 14:42 | ER Document Report ---
ED Fall - General Chief Complaint: Fall Injury Stated Complaint: FALL/BODY PAIN Time Seen by Provider: 03/17/19 14:21 Primary Care Provider: BIB LAWRENCE MD [Primary Care Provider] - Follow up as needed Notes: HPI: 73-year-old female that presents with nursing care facility secondary to a fall. Patient was at the [facility] and she states she was trying to spit in the trash can and fell forward and hit her head, right shoulder, and landed on bilateral knees. She is supposedly taking only aspirin as a blood thinner. She denies loss of consciousness, blurry vision, vomiting, or pain to any other location. She specifically denies any chest pain, back pain above baseline, abdominal pain, or weakness or numbness. Patient is in a wheelchair secondary to chronic knee pain. Patient has some baseline bilateral ptosis with some inflammation of the right eye which is chronic. I did call and speak to the son at [phone] as well as the nursing care facility to corroborate the story. They agree with the story as explained in the patient's chronic medical history. ROS: See HPI All other review of systems reviewed and otherwise negative Reviewed vital signs and nursing note as charted by RN. PHYSICAL EXAM: CONSTITUTIONAL: Alert and oriented and responds appropriately to questions. Well-appearing; well-nourished HEAD: Normocephalic; small right forehead hematoma with no palpable depressions EYES: PERRL; inflamed to the right lower eyelid. No periorbital swelling. ENT: Normal nose; no rhinorrhea; moist mucous membranes; pharynx without lesions noted NECK: Supple without meningismus; non-tender; no cervical lymphadenopathy, no masses CARD: Regular rate and rhythm; no murmurs; symmetric distal pulses RESP: Normal chest excursion without splinting or tachypnea; breath sounds clear and equal bilaterally; no wheezes, no rhonchi, no rales ABD/GI: Normal bowel sounds; non-distended; soft, non-tender; no palpable organomegaly or masses BACK: The back appears normal and is non-tender to palpation EXT: Normal ROM in all joints; patient is actually able to fully flex bilateral knees and hips. No obvious swelling or erythema. No abrasions or lacerations SKIN: No acute lesions noted NEURO: CN 2-12 intact; 5/5 bilateral upper and lower extremity strength with sensation intact to light touch PSYCH: The patient's mood and manner are appropriate. Grooming and personal hygiene are appropriate. TRAVEL OUTSIDE OF THE [place] IN LAST 30 DAYS: No - Related data Allergies/Adverse Reactions: ciprofloxacin [From Cipro] Allergy (Mild, Verified 06/23/18 16:37) rash codeine [Codeine] Allergy (Mild, Verified 06/23/18 16:37) rash esomeprazole magnesium [From Nexium] Allergy (Mild, Verified 06/23/18 16:37) rash oxycodone HCl [From Percodan] Allergy (Mild, Verified 06/23/18 16:37) syomach upset pentazocine lactate [From Talwin] Allergy (Mild, Verified 06/23/18 16:37) rash propoxyphene napsylate [From Darvocet-N 100] Allergy (Mild, Verified 06/23/18 16:37) rash Sulfa (Sulfonamide Antibiotics) Allergy (Mild, Verified 06/23/18 16:37) rash Tetanus Vaccines and Toxoid [Tetanus] Allergy (Mild, Verified 06/23/18 16:37) arm swelled valsartan [From Diovan] Allergy (Verified 06/23/18 16:37) rash Penicillins Adverse Reaction (Mild, Verified 06/23/18 16:37) Hives propn apap Allergy (Mild, Uncoded 06/23/18 16:37) rash tolvan Allergy (Mild, Uncoded 06/23/18 16:37) rash Home Medications: not in pts records from [facility], pt unable to recall Past Medical History - Social History Smoking Status: Never Smoker Family History: Arthritis, CAD, Malignancy, Thyroid Disfunction Patient has suicidal ideation: No Patient has homicidal ideation: No - Past Medical History Cardiac Medical History: Reports: Hx Hypercholesterolemia, Hx Hypertension Denies: Hx Coronary Artery Disease, Hx Heart Attack Pulmonary Medical History: Reports: Hx Asthma Denies: Hx Bronchitis, Hx COPD, Hx Pneumonia Neurological Medical History: Reports: Hx Migraine. Denies: Hx Cerebrovascular Accident, Hx Seizures Endocrine Medical History: Reports: Hx Hypothyroidism Renal/ Medical History: Denies: Hx Peritoneal Dialysis GI Medical History: Reports: Hx Gastroesophageal Reflux Disease, Hx Hiatal Hernia, Hx Irritable Bowel Musculoskeletal Medical History: Reports Hx Arthritis Psychiatric Medical History: Reports: Hx Depression Past Surgical History: Reports: Hx Appendectomy, Hx Cholecystectomy, Hx Dilation and Curettage, Hx Kidney (Renal Surgery) - removed 1981, Hx Pacemaker, Hx Ton sillectomy. Denies: Hx Hysterectomy - Immunizations Immunizations up to date: No Hx Diphtheria, Pertussis, Tetanus Vaccination: No Hx Pneumococcal Vaccination: 01/23/12 Physical Exam - Vital signs Vitals: Temp Pulse Resp BP Pulse Ox 98.0 F 65 16 109/74 96 03/17/19 14:39 03/17/19 14:39 03/17/19 14:39 03/17/19 14:39 03/17/19 14:39 Course - Re-evaluation Re-evalutation: 03/17/19 14:57 Given the above history and physical examination, and the patient's age, we will obtain a CT scan of the head as well as an x-ray of the right shoulder and bilateral knees. Given the patient was discharged previously with a large electrolyte discrepancy, I will order basic metabolic profile. I do not believe any other imaging is necessary at this moment. 03/17/19 15:56 Imaging as recorded. Patient states that she has some chronic right shoulder pain. No other acute findings noted. - Vital Signs Vital signs: Temp Pulse Resp BP Pulse Ox 98.0 F 65 16 109/74 96 03/17/19 14:39 03/17/19 14:39 03/17/19 14:39 03/17/19 14:39 03/17/19 14:39 - Laboratory Result Diagrams: 03/17/19 15:39 03/17/19 15:39 Discharge - Discharge Clinical Impression: Accidental fall from chair Qualifiers: Encounter type: initial encounter Qualified Code(s): W07.XXXA - Fall from chair, initial encounter Contusion of knee, left Qualifiers: Encounter type: initial encounter Qualified Code(s): S80.02XA - Contusion of left knee, initial encounter Contusion of knee, right Qualifiers: Encounter type: initial encounter Qualified Code(s): S80.01XA - Contusion of right knee, initial encounter Closed head injury Qualifiers: Encounter type: initial encounter Qualified Code(s): S09.90XA - Unspecified injury of head, initial encounter Condition: Good Disposition: HOME, SELF-CARE Additional Instructions: Come back immediately for any fever, vomiting, worsening pain, shortness of breath, confusion above baseline, or any other acute problems. Please make sure you have the patient follow-up with the orthopedics regarding the patient's right shoulder. It appears that the patient has a chronic appearing AC separation. Referrals: BIB LAWRENCE MD [Primary Care Provider] - Follow up as needed
--- NOTE | 2019-03-17 15:19 | RADIOLOGY REPORT (SQ) ---
EXAM DESCRIPTION: CT HEAD WITHOUT COMPLETED DATE/TIME: 03/17/2019 3:02 pm REASON FOR STUDY: 1; fall COMPARISON: 06/06/2017 TECHNIQUE: Axial images acquired through the brain without intravenous contrast. Images reviewed wi th bone, brain and subdural windows. Additional sagittal and coronal reconstructions were generated. Images stored on PACS. All CT scanners at this facility use dose modulation, iterative reconstruction, and/or weight based d osing when appropriate to reduce radiation dose to as low as reasonably achievable (ALARA). [facility]: Dose Right [facility]: CareDose [facility]: Dose Right [facility]: Teradose 4D [facility]: Sendmybag RADIATION DOSE: CT Rad equipment meets quality standard of care and radiation dose reduction techniq ues were employed. CTDIvol: 53.2 mGy. DLP: 991 mGy-cm. mGy. LIMITATIONS: None. FINDINGS: VENTRICLES: Prominent. CEREBRUM: No masses. No hemorrhage. No midline shift. Areas of low density in the white matter mos t likely due to chronic micro-vascular ischemic change. No evidence for acute infarction. CEREBELLUM: No masses. No hemorrhage. No alteration of density. No evidence for acute infarction. EXTRAAXIAL SPACES: Mild age-related involutional change. No fluid collections. No masses. ORBITS AND GLOBE: No intra- or extraconal masses. Normal contour of globe without masses. CALVARIUM: No fracture. PARANASAL SINUSES: No fluid or mucosal thickening. SOFT TISSUES: No mass or hematoma. OTHER: No other significant finding. IMPRESSION: MILD CHRONIC CHANGES OF ATROPHY AND MICROVASCULAR ISCHEMIA. NO ACUTE PROCESS. EVIDENCE OF ACUTE STROKE: NO. TECHNICAL DOCUMENTATION: JOB ID: [id number] Quality ID # [id number]: Final reports with documentation of one or more dose reduction techniques (e.g., Au tomated exposure control, adjustment of the mA and/or kV according to patient size, use of iterative reconstruction technique) 2010 [employer]- All Rights Reserved Reading location - IP/workstation name: [email or web address]
--- NOTE | 2019-03-17 15:45 | RADIOLOGY REPORT (SQ) ---
EXAM DESCRIPTION: PELVIS AP COMPLETED DATE/TIME: 03/17/2019 3:37 pm REASON FOR STUDY: 1; fall COMPARISON: None. NUMBER OF VIEWS: One view TECHNIQUE: AP Pelvis LIMITATIONS: None. FINDINGS: MINERALIZATION: Normal. HIPS: No acute fracture or dislocation. No worrisome bone lesions. PELVIS AND SACRUM: No acute fracture or dislocation. No worrisome bone lesions. PUBIS AND ISCHIUM: No acute fracture. LOWER LUMBAR SPINE: No significant findings as visualized. SOFT TISSUES: No findings. OTHER: No other significant finding. IMPRESSION: NEGATIVE STUDY OF THE PELVIS. COMMENT: Pelvic fractures are often occult on plain radiographs. If strong clinical suspicion for f racture, recommend CT or MR. TECHNICAL DOCUMENTATION: JOB ID: [id number] [employer]- All Rights Reserved Reading location - IP/workstation name: [email or web address]
--- NOTE | 2019-03-17 15:46 | RADIOLOGY REPORT (SQ) ---
EXAM DESCRIPTION: KNEE LEFT 3 VIEWS COMPLETED DATE/TIME: 03/17/2019 3:37 pm REASON FOR STUDY: 1; fall COMPARISON: None. NUMBER OF VIEWS: Three views. TECHNIQUE: AP, lateral, and sunrise patella radiographic images acquired of the left knee. LIMITATIONS: None. FINDINGS: MINERALIZATION: Normal. BONES: No acute fracture or dislocation. No worrisome bone lesions. JOINT: There is chondrocalcinosis in the medial compartment. No joint effusion. There is joint spac e narrowing in the medial compartment and patellofemoral compartment. SOFT TISSUES: No soft tissue swelling. No radio-opaque foreign body. OTHER: No other significant finding. IMPRESSION: Chondrocalcinosis in the medial compartment. Mild osteoarthritic changes. TECHNICAL DOCUMENTATION: JOB ID: [id number] [employer]- All Rights Reserved Reading location - IP/workstation name: [email or web address]
--- NOTE | 2019-03-17 15:47 | RADIOLOGY REPORT (SQ) ---
EXAM DESCRIPTION: KNEE RIGHT 3 VIEWS COMPLETED DATE/TIME: 03/17/2019 3:37 pm REASON FOR STUDY: 1; fall COMPARISON: None. NUMBER OF VIEWS: Three views. TECHNIQUE: AP, lateral, and sunrise patella radiographic images acquired of the right knee. LIMITATIONS: None. FINDINGS: MINERALIZATION: Normal. BONES: No acute fracture or dislocation. No worrisome bone lesions. JOINT: Chondrocalcinosis in the mediolateral compartments. No joint effusion. Joint space narrowing in all compartments. SOFT TISSUES: No soft tissue swelling. No radio-opaque foreign body. OTHER: No other significant finding. IMPRESSION: Tricompartmental osteoarthritis. Chondrocalcinosis. No acute fracture or dislocation. TECHNICAL DOCUMENTATION: JOB ID: [id number] [employer]- All Rights Reserved Reading location - IP/workstation name: [email or web address]
--- NOTE | 2019-03-17 15:48 | RADIOLOGY REPORT (SQ) ---
EXAM DESCRIPTION: SHOULDER RIGHT 2 OR MORE VIEWS COMPLETED DATE/TIME: 03/17/2019 3:37 pm REASON FOR STUDY: 1; pain COMPARISON: None. NUMBER OF VIEWS: Three views. TECHNIQUE: Internal rotation, external rotation, and Y view images acquired of the right shoulder. LIMITATIONS: None. FINDINGS: MINERALIZATION: Normal. BONES: No acute fracture. No worrisome bone lesions. JOINTS: Degenerative changes in the AC joint. Widening of the AC joint. Most likely chronic. VISUALIZED LUNGS AND RIBS: No pneumothorax. No rib fracture. SOFT TISSUES: No radiopaque foreign body. OTHER: No other significant finding. IMPRESSION: Widening of the AC joint most likely chronic. No acute fracture or dislocation. TECHNICAL DOCUMENTATION: JOB ID: [id number] [employer]- All Rights Reserved Reading location - IP/workstation name: [email or web address]
[2019-03-17 16:00] LABS: ABSOLUTE BASOPHILS # (AUTO) 0.1 10^3/uL (0.0-0.2); ABSOLUTE EOSINOPHILS # (AUTO) 0.2 10^3/uL (0.0-0.6); ABSOLUTE LYMPHOCYTES (AUTO) 1.5 10^3/uL (0.5-4.7); ABSOLUTE MONOCYTES (AUTO) 0.6 10^3/uL (0.1-1.4); ABSOLUTE NEUT (AUTO) 4.6 10^3/uL (1.7-8.2); HEMATOCRIT 40.9 % (36.0-47.0); HEMOGLOBIN 13.8 g/dL (12.0-15.5); MEAN CORPUSCULAR HEMOGLOBIN 31.1 pg (27.0-33.4); MEAN CORPUSCULAR HGB CONC 33.8 g/dL (32.0-36.0); MEAN CORPUSCULAR VOLUME 92 fl (80-97); MONOCYTES % (AUTO) 8.2 % (3-13); PLATELET COUNT 232 10^3/uL (150-450); RED BLOOD COUNT 4.45 10^6/uL (3.72-5.28); RED CELL DISTRIBUTION WIDTH 14.3 % (11.5-14.0); SEGMENTED NEUTROPHILS % (AUTO) 65.8 % (42-78); TOTAL CELLS COUNTED % (AUTO) 100 %
[2019-03-17 16:28] LABS: ANION GAP 5 (5-19); BLOOD UREA NITROGEN 33 mg/dL (7-20); CALCIUM 9.2 mg/dL (8.4-10.2); CARBON DIOXIDE 29 mmol/L (22-30); CHLORIDE 103 mmol/L (98-107); GLUCOSE 117 mg/dL (75-110); POTASSIUM 5.2 mmol/L (3.6-5.0)
[2019-03-17] MEDS ORDERED: ACETAMINOPHEN 325 MG TABLET PO ONE (17:04)
[2019-03-17 17:19] LABS: APPEARANCE,URINE CLEAR; BILIRUBIN,URINE NEGATIVE (NEGATIVE); COLOR,URINE YELLOW; GLUCOSE, URINE NEGATIVE (NEGATIVE); KETONES,URINE NEGATIVE (NEGATIVE); LEUKOCYTE ESTERASE,URINE NEGATIVE (NEGATIVE); NITRITE,URINE NEGATIVE (NEGATIVE); PROTEIN,URINE NEGATIVE (NEGATIVE); URINE SPECIFIC GRAVITY 1.012; UROBILINOGEN,URINE NEGATIVE mg/dL (<2.0)
[2019-03-17 18:42] VITALS: BP 134/94
== END 2019-03-17 19:06 | disposition home or self-care (01) ==
LOC: ER 14:12
DX: S00.83XA Contusion of other part of head, initial encounter (principal); S80.02XA Contusion of left knee, initial encounter; S80.01XA Contusion of right knee, initial encounter; W05.0XXA Fall from non-moving wheelchair, initial encounter; Y93.89 Activity, other specified; Y92.129 Unspecified place in nursing home as the place of occurrence of the external cause; M25.511 Pain in right shoulder; M25.569 Pain in unspecified knee; G89.29 Other chronic pain; I10 Essential (primary) hypertension; J45.909 Unspecified asthma, uncomplicated; H02.401 Unspecified ptosis of right eyelid; Z79.82 Long term (current) use of aspirin; Z88.1 Allergy status to other antibiotic agents; Z88.6 Allergy status to analgesic agent; Z88.5 Allergy status to narcotic agent; Z88.8 Allergy status to other drugs, medicaments and biological substances; Z88.2 Allergy status to sulfonamides; Z88.7 Allergy status to serum and vaccine
CPT/HCPCS: 99285; 36415; 85025; 80048; 81001; 73562 ×2; 72170; 73030; 70450; A9270